=== PATIENT | male | born 1950 | race African-American/Black ===

== ENCOUNTER 2017-06-19 13:51 | Emergency (ER) | payer BC, OTHER ==
[2017-06-19] MEDS ORDERED: Dextrose 50% Abboject 50 ML SYRINGE ONE (14:14)
[2017-06-19 14:56] LABS: #Eosinphils 0.2 thou/uL (0.0-0.7); #Lymphocytes 0.8 thou/uL (1.20-3.40); #Monocytes 0.5 thou/uL (0.11-0.59); #Neutrophils 4.3 thou/uL (1.40-6.50); %Basophils 0.7 % (0.0-1.0); %Eosinophils 3.9 % (0.0-10.0); %Lymphocytes 13.7 % (21.0-51.0); %Monocytes 8.3 % (0.0-10.0); %Neutrophils 73.4 % (42.0-75.0); Hemoglobin 14.6 g/dL (14.0-18.0); Mean Corpuscular HGB CONC 31.1 g/dL (32.0-36.0); Mean Corpuscular Hemoglobin 27.1 pg (27.0-31.0); Mean Platelet Volume 7.4 fL (7.4-10.4); Platelet Count 304 thou/uL (130-400); RBC Distribution Width 14.2 % (11.5-14.5); Red Blood Cell (RBC) Count 5.41 mill/uL (4.70-6.10); White Blood Cell (WBC) Count 5.8 thou/uL (4.8-10.8)
[2017-06-19 15:11] LABS: ALT (SGPT) 21 U/L (8-55); AST (SGOT) 38 U/L (5-34); Albumin 3.4 g/dL (3.4-4.8); Alkaline Phosphatase 70 U/L (40-150); Anion Gap 12 mmol/L (10-20); BUN (Urea Nitrogen) 45 mg/dL (8.4-25.7); Bilirubin, Total 0.3 mg/dL (0.2-1.2); Calc. Creatinine Clearance 0 mL/min (70-130); Calcium 9.6 mg/dL (7.8-10.44); Carbon Dioxide 22 mmol/L (23-31); Chloride 109 mmol/L (98-107); Estimated GFR-MDRD 29; Globulin 3.5 g/dL (2.4-3.5); Glucose 136 mg/dL (80-115); Potassium 5.1 mmol/L (3.5-5.1); Protein, Total 6.9 g/dL (5.8-8.1); Sodium 138 mmol/L (136-145)
[2017-06-19 15:36] LABS: Bilirubin Negative (Negative); Clarity CLEAR (Clear); Glucose, Urine (Dipstick) 250 mg/dL (Negative); Leukocyte Negative (Negative); Nitrite Negative (Negative); Protein, Urine (Dipstick) 300 mg/dL (Neg-Trace); Specific Gravity, Urine 1.012 (1.002-1.036); Urobilinogen 0.2 mg/dL (0.2-1.0); pH, Urine 6.5 (5.0-9.0)
[2017-06-19 15:38] LABS: Bacteria/HPF None Seen HPF (None Seen); Hyaline Casts/LPF 0-3 HYALINE CAST LPF (0-3 Hyaline); Pathc Cast-AUWi Flag 0.13 (0-2.49); Squamous Epithelial None Seen HPF (0-3); WBC/HPF 0-3 HPF (0-3)
[2017-06-19 15:44] LABS: Blood, Urine Large (Negative)
== END 2017-06-19 17:12 | disposition home or self-care (01) ==
LOC: ERS 13:51
DX: E11.649 Type 2 diabetes mellitus with hypoglycemia without coma (principal); E78.5 Hyperlipidemia, unspecified; I10 Essential (primary) hypertension; E66.9 Obesity, unspecified; J45.909 Unspecified asthma, uncomplicated; Z79.82 Long term (current) use of aspirin; Z79.899 Other long term (current) drug therapy; Z79.4 Long term (current) use of insulin
CPT/HCPCS: 36415; 36416; 80053; 81003; 81015; 85025; 96374

== ENCOUNTER 2018-03-08 17:33 | Inpatient (IN) | payer MEDICARE, OTHER ==
--- NOTE | 2018-03-08 18:32 | PDOC.FPRHP ---
Addendum entered and electronically signed by Wilber Yip MD 03/09/18 08:00 : FH: DM Addendum entered and electronically signed by Wilber Yip MD 03/09/18 05:15 : PMH: DM, HTN, HLD, CKD, L eye cataract PSH: L eye (multiple surgeries) Social: Former EtOH abuse, denies smoking denies drugs Original Note: - History of Present Illness Chief Complaint: maggots in legs History of Present Illness: This is a 67M with pmh of DM, chronic bilateral LE wounds, and CKD presenting as transfer from [place] ED for evaluation of maggot infestation of chronic leg wounds. Pt reports wounds appeared on legs 3 months ago and then resolved but recently came back 1 month ago. The morning of 03/08 the pt daughter came by to check on him and noticed that his legs were infected with hundreds of maggots. Pt presented to ED in [place] and was found to also have hyperkalemia and hyperglycemia, was given insulin and rocephine and transferred to [place] ED. Pt denies knowing about the maggots until this morning. Denies fevers/chills or any other signs of infection. Denies pain in legs. Endorses 1 month hx of SOB on exertion and orthopnea. no paroxysmal nocturnal dsypnea. Reports this is a new problem and has no hx of copd or chf as far as he knows. ED Course: Insulin, rocephin, hydralazine. Wound cleaned with hydrogen peroxide and 100- 300 maggots removed. - Allergies/Adverse Reactions Allergies Allergy/AdvReac Type Severity Reaction Status Date / Time No Known Drug Allergies Allergy Unverified 03/08/18 20:25 - Home Medications Medication Instructions Recorded Confirmed Type Aspirin [Aspirin EC] 325 mg PO DAILY 03/08/18 03/08/18 History Atenolol [Tenormin] 50 mg PO BID 03/08/18 03/08/18 History Atropine Sulfate [Atropine 1% 1 applic L EYE BID 03/08/18 03/08/18 History Ophth Ointment] Ferrous Sulfate [Feosol] 325 mg PO BID 03/08/18 03/08/18 History Hydrochlorothiazide 25 mg PO DAILY 03/08/18 03/08/18 History Insulin NPH Hum/Reg Insulin HM 20 unit SQ QPM 03/08/18 03/08/18 History [Novolin 70-30 100 Unit/ml Vial] Insulin NPH Hum/Reg Insulin HM 60 units SQ QAM 03/08/18 03/08/18 History [Novolin 70-30 100 Unit/ml Vial] Loratadine [Claritin] 10 mg PO DAILY PRN 03/08/18 03/08/18 History Losartan Potassium 100 mg PO DAILY 03/08/18 03/08/18 History Prednisolone Acetate/Pf 1 drop OP QID 03/08/18 03/08/18 History [Prednisolone Acet 1% Eye Drop] Simvastatin 40 mg PO HS 03/08/18 03/08/18 History - History PMHx: PSHx: FHx: Social: - Review of Systems General: denies: fever/chills, night sweats Eyes: denies: vision changes ENT: denies: nasal congestion, rhinorrhea Respiratory: reports: shortness of breath. denies: cough Cardiovascular: reports: orthopnea. denies: chest pain, palpitation, paroxysmal nocturnal dyspnea Gastrointestinal: denies: nausea, vomiting, diarrhea, constipation Genitourinary: denies: incontinence, dysuria Skin: denies: rashes, jaundice Musculoskeletal: denies: pain Neurological: denies: numbness, syncope - Vital signs BP: [198/83] HR: [84] RR: [22] Tmax: [98] Pox: [95]% on [RA] Wt: [130kg] - Physical Exam Constitutional: NAD, awake, alert and oriented HEENT: normocephalic and atraumatic, EOMI, normal nasal mucosa, MMM Neck: trachea midline Chest: no-tender to palpation Heart: RRR, normal S1/S2 Lungs: CTAB, other (Pt appears to have mildy labored breathing) Abdomen: soft, non-tender -Skin: LLE-8x12cm open hemostatic wound on anterior tibia with necrotic skin overlying in patches. 50-100 small maggots actively crawling through wound --> s/p cleaning no more maggots, necrotic tissue remains. RLE- 11x7cm open hemostatic wound and anterior tibia with necrotic skin overlying in patches. 50-100 small maggots actively crawling through wound --> s /p cleaning no more maggots, necrotic tissue remains. 7x4.5cm wound on posterior calve, no maggots, necrotic tissue Psychiatric: normal mood and affect FMR H&P: Results - Labs Result Diagrams: 03/09/18 05:17 03/09/18 13:53 FMR H&P: A/P - Problem List (1) Chronic wound of extremity Current Visit: Yes Status: Acute Code(s): [id number] - (2) Hyperkalemia Current Visit: Yes Status: Acute Code(s): E87.5 - HYPERKALEMIA (3) Hyperglycemia Current Visit: Yes Status: Acute Code(s): R73.9 - HYPERGLYCEMIA, UNSPECIFIED (4) Diabetes Current Visit: Yes Status: Acute Code(s): E11.9 - TYPE 2 DIABETES MELLITUS WITHOUT COMPLICATIONS (5) CKD (chronic kidney disease) Current Visit: Yes Status: Acute Code(s): N18.9 - CHRONIC KIDNEY DISEASE, UNSPECIFIED (6) Hypertensive urgency Current Visit: Yes Status: Acute Code(s): I16.0 - HYPERTENSIVE URGENCY (7) HTN (hypertension) Current Visit: Yes Status: Acute Code(s): I10 - ESSENTIAL (PRIMARY) HYPERTENSION - Plan Lower extremity wounds likely secondary to venous/arterial insufficiency A- s/p wound irrigation with H2O2 and normal saline and removal of maggots. wound care consulted in ED. P- Consider vascular surgery consult in AM -f/u wound care recs Hyperkalemia A- s/p insulin and albuterol, no peaked T or arrythmia on EKG. most recent potassium 5.1 P- repeat bmp in AM Dyspnea A- likely 2/2 volume overload vs bronchospasm. satting well on RA P- CXR, BNP, and Echo for further evaluation. -will give lasix and nebs Hypertensive urgency A- s/p Hydralazine 10 mg in ED. P- will restart home meds -lasix -continue to monitor Chronic kidney disease A- Cr. 3.37, last one before that was 2.71 in 2017 P- PO hydration -BMP in am hold nephrotoxic medications. Diabetes Mellitus A- hyperglycemic on presentation, s/p humilin in ED, refusing nighttime home insulin meds P- resume home meds -SSI and accuchecks -case mgmt to [facility] for home health as pt has difficulty taking care of himself FMR H&P: Upper Level - Pertinent history Juan M Suero is a 67 year old male with a past history of diabetes, hypertension, and chronic kidney disease, and vision impairment who was transferred from an outside ER due to worsening bilateral lower extremity wounds now infected with maggots. He was also found to have hyperkalemia with a potassium of 6.4. Pt's lives at home by himself and his daughter routinely checks in on him. She noticed the maggots today and transported him to the ED. Prior to transfer he received albuterol, 1L NS, [place]. - Pertinent findings Vitals: T: 98.0 RR: 30 P: 84 BP: 198/83 95%on RA. Weight: 108 kg Physical Exam: General: alert and oriented; in no apparent distress. Heart: Regular rate and rhythm Lungs: clear to auscultation Extremities: Bilateral lower extremity wounds (R: 12x7 cm and L: 14x8 cm) covered in scores of maggots. no pulses identified by doppler. - Plan Date/Time: 03/08/181831 I, Tessie Sousa, have evaluated this patient and agree with findings/plan as outlined by paid intern resident. Pertinent changes/additions are listed here. Lower extremity wounds likely secondary to venous/arterial insufficiency - with myiasis - s/p wound irrigation with H2O2 and normal saline - will consult wound care. - will also consult vascular surgery in am as well due to impaired circulation. Hyperkalemia - s/p insulin and albuterol - no EKG changes - will repeat BMP now to see if it has resolved. Dyspnea - differentials include volume overload, bronchospasm - not hypoxic on room air. - will order CXR, BNP, and Echo for further evaluation. Hypertensive urgency - s/p Hydralazine 10 mg in ED. - will restart home meds Chronic kidney disease - hold nephrotoxic medications. Protein-calorie malnutrition - Jevity Diabetes Mellitus Will need to consult CM for placement as pt lives alone, and cannot adequately take care of himself. Chronic kidney disease - will avoid nephrotoxic medications. - PO hydration. Attending Addendum - Attending Addendum Date/Time: 03/09/182047. Please note seen on 03/08 on day of admission. I personally evaluated the patient and discussed the management with Dr. Yip and Lars. I agree with and repeated the History, Examination, Assessment and Plan documented above with any addition or exceptions noted below. Wound care. No signs/symptoms of infection. Insulin for DM and hyperK. Recheck K, may need additional therapy. D/w renal in AM. Nebs for acute respiratory failure/shortness of breath and monitor closely.
[2018-03-08] MEDS ORDERED: hydrALAZINE 20 MG/ML VIAL ONE (19:33)
[2018-03-08 20:33] LABS: Anion Gap 14 mmol/L (10-20); BUN (Urea Nitrogen) 45 mg/dL (8.4-25.7); Calc. Creatinine Clearance 0 mL/min (70-130); Calcium 8.5 mg/dL (7.8-10.44); Carbon Dioxide 18 mmol/L (23-31); Chloride 109 mmol/L (98-107); Estimated GFR-MDRD 23; Glucose 237 mg/dL (80-115); Potassium 5.1 mmol/L (3.5-5.1); Sodium 136 mmol/L (136-145)
[2018-03-08] MEDS ORDERED: Insulin NPH/Reg Insulin Hm 300 UNITS/3 ML VIAL SC SCH (21:00)
[2018-03-08] MEDS ORDERED: Atenolol 50 MG TAB PO SCH (21:00)
[2018-03-08] MEDS ORDERED: Insulin Regular 300 UNITS/3 ML VIAL SC PRN (21:05)
[2018-03-08] MEDS ORDERED: Dextrose 5% in Water 1,000 ML IV PRN (21:05)
[2018-03-08] MEDS ORDERED: Dextrose 50% Abboject 50 ML SYRINGE SLOW IVP PRN (21:05)
--- NOTE | 2018-03-08 21:26 | RAD ---
AP VIEW CHEST 03/08/18 HISTORY: Necrotic leg wound both lower extremities. Maggots on wounds. AP view chest is obtained. A moderate degree of pulmonary vascular congestion seen. No evidence of effusions, pneumonia, or pne umothorax seen. IMPRESSION: Pulmonary vascular congestion. POS: [facility]
[2018-03-08] MEDS: Ferrous Sulfate 325 MG TAB PO SCH (22:50)
[2018-03-08] MEDS: prednisoLONE 1% Ophth Susp 5 ml Bottle EA EYE SCH (23:50)
[2018-03-09] MEDS ORDERED: Furosemide 40 MG/4 ML VIAL SLOW IVP SCH ×2 (00:30→06:00)
[2018-03-09] MEDS ORDERED: Insulin NPH/Reg Insulin Hm 300 UNITS/3 ML VIAL SC SCH ×2 (01:58→23:15)
--- NOTE | 2018-03-09 05:35 | PDOC.FM ---
- Subjective Subjective: Patient's repeat K this AM was elevated at 6.8 w/ noticeable peaked T waves on EKG. Patient is completely asymptomatic. Denies any fever, CP, SOB, leg pain, or N/V/D. Does endorse some chills and despite denying dyspnea was short of breath on exam. Able to answer questions but sounded SOB while responding. - Objective MAR Reviewed: Yes Vital Signs & Weight: Vital Signs (12 hours) Temp Pulse Resp BP BP Pulse Ox 03/09/18 04:00 98.3 F 80 32 H 172/77 H 99 03/09/18 00:00 98.1 F 84 32 H 186/82 H 97 03/08/18 21:05 97 03/08/18 21:00 97.9 F 81 24 H 176/79 H 97 Weight Weight 130.181 kg Result Diagrams: 03/09/18 05:17 03/09/18 05:17 Phys Exam - Physical Examination mild distress 2/2 tachypnea HEENT: moist MMs, oral pharynx no lesions cataract over L eye matted shut w/ some purulent discharge noted. 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 Neck: supple, full ROM Respiratory: no wheezing, no rales, no rhonchi, clear to auscultation bilateral increased work of breathing/tachypnic on exam Cardiovascular: RRR, no significant murmur, no rub Gastrointestinal: soft, non-tender, positive bowel sounds mild distension B/L LE edema, non-pitting Neurological: non-focal, moves all 4 limbs sensation intact in B/L LEs Psychiatric: normal affect, A&O x 3 Deviation from normal: B/L anterior leg wounds covered with dressing w/ no discharge noted -: foul odor present Dx/Plan (1) CKD (chronic kidney disease) Code(s): N18.9 - CHRONIC KIDNEY DISEASE, UNSPECIFIED Status: Acute (2) Chronic wound of extremity Code(s): [id number] - Status: Acute (3) Diabetes Code(s): E11.9 - TYPE 2 DIABETES MELLITUS WITHOUT COMPLICATIONS Status: Acute (4) HTN (hypertension) Code(s): I10 - ESSENTIAL (PRIMARY) HYPERTENSION Status: Acute (5) Hyperkalemia Code(s): E87.5 - HYPERKALEMIA Status: Acute (6) Hypertensive urgency Code(s): I16.0 - HYPERTENSIVE URGENCY Status: Acute (7) Hyperglycemia Code(s): R73.9 - HYPERGLYCEMIA, UNSPECIFIED Status: Acute - Plan Plan: This is a 67YOM with a pmh of DMII, chronic bilateral LE wounds, and CKD who presented as transfer from the [place] ED for evaluation of maggot infestation of chronic leg wounds. Chronic lower extremity wounds likely secondary to venous/arterial insufficiency - Wounds were irrigated with H2O2 and normal saline with removal of maggots in the ED. - Wound care consulted in ED. - Will consider vascular surgery consult in AM as pulses were not even identified via doppler in the ED & PVD could be reason for poor wound healing in conjnction w/ poorly controlled DMII. Hyperkalemia - K was 6.4 on presentation & decreased to 5.1 s/p insulin and albuterol. No peaked T or arrhythmia on EKG. - K up to 6.8 this AM w/ peaked T waves noted on telemetry & EKG. Was given Ca, insulin w/ dextrose, and continuous albuterol. Also ordered kayexalate & lactulose per nephro. Dr. Arreola consulted. Appreciate recs. - Will repeat K later today and will continue to follow w/ QD BMPs. Dyspnea - Likely 2/2 volume overload from CKD &/or undiagnosed CHF vs. bronchospasm. - Patient was initially satting well on RA but is now on 2L NC likely 2/2 tachypnea but satting between 97-100%. - CXR significant for pulmonary vascular congestion & BNP elevated at 888.5. Will get an echo today to evaluate for undiagnosed CHF. - Will get QD weights & strict Is & Os. - Will continue Duonebs PRN. - Will consider holding lasix given poor renal function as patient is likely volume overloaded due to poor renal function. - Nephrology consulted this AM. Dr. Arreola to see. Appreciate recs. Hypertensive urgency - BP s/p Hydralazine 10 mg in ED. BP still not well-controlled overnight. - Will start on 10 Norvasc and coreg 12.5 BID since previous home meds would likely not be effective given his poor/decreased renal function. - Will continue to monitor. Chronic kidney disease - Cr of 3.37 on presentation which is elevated from last measured Cr of 2.71 in 2017. - Will hold on on IVFs due to concern for volume overload and will continue PO hydration for now. - Cr down to 3.13 this AM. - Will hold all nephrotoxic medications. Diabetes Mellitus - Elevated BG of 237 on presentation. Still elevated at 289 this AM as patient refused his PM insulin dose 2/2 fear of "bottoming out." - Will resume home meds w/ addition of SSI. Will continue accuchecks. - A1c elevated at 11 this AM. Needs DM education. - Case mgmt consulted to evaluate for home health as patient obviously has difficulty taking care of himself.
[2018-03-09 05:42] LABS: #Eosinphils 0.1 thou/uL (0.0-0.7); #Lymphocytes 0.9 thou/uL (1.20-3.40); #Monocytes 0.7 thou/uL (0.11-0.59); #Neutrophils 5.8 thou/uL (1.40-6.50); %Basophils 0.5 % (0.0-1.0); %Eosinophils 1.4 % (0.0-10.0); %Lymphocytes 12.2 % (21.0-51.0); %Neutrophils 76.9 % (42.0-75.0); Hemoglobin 10.7 g/dL (14.0-18.0); Mean Corpuscular HGB CONC 31.5 g/dL (32.0-36.0); Mean Corpuscular Hemoglobin 25.7 pg (27.0-31.0); Mean Corpuscular Volume 81.6 fL (78.0-98.0); Mean Platelet Volume 7.7 fL (7.4-10.4); Platelet Count 365 thou/uL (130-400); RBC Distribution Width 14.5 % (11.5-14.5); Red Blood Cell (RBC) Count 4.18 mill/uL (4.70-6.10); White Blood Cell (WBC) Count 7.6 thou/uL (4.8-10.8)
[2018-03-09] MEDS ORDERED: Sodium Chloride 0.9% 10 ML ONE (05:52)
[2018-03-09 06:05] LABS: Anion Gap 15 mmol/L (10-20); BUN (Urea Nitrogen) 44 mg/dL (8.4-25.7); Calc. Creatinine Clearance 43 mL/min (70-130); Calcium 8.6 mg/dL (7.8-10.44); Carbon Dioxide 17 mmol/L (23-31); Chloride 112 mmol/L (98-107); Estimated GFR-MDRD 24; Glucose 289 mg/dL (80-115); Sodium 137 mmol/L (136-145)
[2018-03-09 06:11] LABS: Potassium 6.8 mmol/L (3.5-5.1)
[2018-03-09] MEDS ORDERED: Calcium Gluc 4.6 MEQ/10 ML (100 MG/ML) SLOW IVP SCH (06:16)
[2018-03-09] MEDS ORDERED: Dextrose 50% Abboject 50 ML SYRINGE SLOW IVP PRN (06:18)
[2018-03-09] MEDS: prednisoLONE 1% Ophth Susp 5 ml Bottle EA EYE SCH ×3 (06:19→16:42)
[2018-03-09] MEDS ORDERED: Insulin Regular 300 UNITS/3 ML VIAL IVP SCH (06:30)
[2018-03-09] MEDS ORDERED: Sodium Bicarb 50 MEQ/50 ML Abboject 8.4% SYRINGE IVP SCH (06:30)
[2018-03-09] MEDS ORDERED: Albuterol Sulfate 1.25 MG/3 ML NEB NEB STA (06:42)
[2018-03-09] MEDS: Amlodipine 10 MG TAB PO SCH (08:49)
[2018-03-09] MEDS: Aspirin 325 mg Enteric Coated Tablet PO SCH (08:49)
[2018-03-09] MEDS: Ferrous Sulfate 325 MG TAB PO SCH ×2 (08:50→21:50)
[2018-03-09] MEDS: Carvedilol 6.25 MG TAB PO SCH ×2 (08:50→16:07)
[2018-03-09] MEDS: Atorvastatin Calcium 20 MG TAB PO SCH (08:50)
[2018-03-09] MEDS: Loratadine 10 MG TAB PO SCH (08:50)
[2018-03-09] MEDS: Atropine Sulfate 1% Ophth Ointment 3.5 gm Tube L EYE SCH (08:52)
[2018-03-09] MEDS ORDERED: Enoxaparin Sodium 40 MG/0.4 ML SYRINGE SC SCH (09:00)
[2018-03-09] MEDS ORDERED: Losartan 25 MG TAB PO SCH (09:00)
[2018-03-09] MEDS ORDERED: Prevnar 13-Val Conj/PF 0.5 ML SYRINGE IM ONE (09:00)
[2018-03-09] MEDS ORDERED: Hydrochlorothiazide 25 MG TAB PO SCH (09:00)
[2018-03-09] MEDS: Insulin NPH/Reg Insulin Hm 300 UNITS/3 ML VIAL SC SCH (09:04)
[2018-03-09] MEDS ORDERED: Albumin 25% 25 GM/100 ML BOT IVPB ONE (09:38)
[2018-03-09] MEDS ORDERED: Magnesium 2 GM/50 ML 2 GM in Premix Bag 1 BAG IVPB SCH (11:00)
[2018-03-09] MEDS ORDERED: Nitroglycerin 2% Ointment 1 INCH/1 GM Packet TOP SCH ×2 (11:00)
--- NOTE | 2018-03-09 11:33 | CON ---
DATE OF CONSULTATION: 03/09/2018 HISTORY OF PRESENT ILLNESS: Mr. Suero is a 67-year-old black male who was admitted for an infected left leg. As per ER record, the patient presented with chronic leg infection. was found to b e there. This was subsequently clean. Wound care consult has been done. He was admitted for furthe r management of his infection as well as for the hyperkalemia. Of interest, this patient has been taking losartan 100 mg tab once a day. He is followed up at the [facility] for his medical care. We are now being consulted for his chronic renal failure as well as hyperkal emia. REVIEW OF SYSTEMS: Positive for chronic leg infection. Denies any fever, no nausea, no vomiting. D ecreased left eye visual alacrity. No fever or chills. No hematochezia, no melena, no hematemesis, no abdominal pain. Appetite and energy level is fair. No occasional joint pains, no new skin rash. HOME MEDICATIONS: Losartan 100 mg once a day, prednisone drop as directed, simvastatin 40 mg tab at bedtime, Novolin 70/30, 20 units subcu q.p.m. and 60 units subcu q.a.m., hydrochlorothiazide 25 mg da joy, atenolol 50 mg p.o. b.i.d., aspirin 325 mg once a day. PAST MEDICAL HISTORY: 1. Type 2 diabetes mellitus. 2. Chronic renal failure secondary to presumed diabetic nephropathy. 3. Hypertension. 4. Type 2 diabetes mellitus. 5. Peripheral vascular disease? 6. Left eye blindness? 7. Glaucoma. PAST SURGICAL HISTORY: Includes left eye surgery, status post colonoscopy. SOCIAL HISTORY: The patient is , lives in [place], he is a . 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 Education, high school. No smoking, no alcoh ol intake, no IV drug abuse. ALLERGIES: No known drug allergies. TRAUMA: None. IMMUNIZATIONS: Unknown. HOSPITALIZATIONS: Please see past medical history. FAMILY HISTORY: No family history of ESRD. PHYSICAL EXAMINATION: VITAL SIGNS: Blood pressure 143/68, heart rate 88, respiratory rate 24, pulse ox 100%, temperature 9 8.3. GENERAL: Noted to be awake, alert, comfortable, not in overt distress. SKIN: Adequate turgor. HEENT: Pinkish conjunctivae, anicteric sclerae. NECK: No neck mass, no carotid bruits, no JVD. Positive for left eye blindness. LUNGS: Clear breath sounds, no wheezing, no crackles. HEART: Normal sinus rhythm. No murmur, no gallops or rubs. ABDOMEN: Globular, soft, nontender, no masses. EXTREMITIES: Positive for chronic wound infection. Positive for dressing. NEUROLOGIC: Awake, oriented to 3 spheres. Moving all extremities. No tremors, no asterixis, no aroldo margot. LABORATORY DATA: Of 03/09/2018: Sodium 137, potassium 6.8, chloride 112, carbon dioxide 17, BUN 44, creatinine 3.13, glucose 289, calcium 8.6. BNP 888. White count 7.6, hemoglobin 10.7. Urinalysis shows a protein of 300, rbc's , wbc's 0-3. Chest x-ray shows increased lung markings. ASSESSMENT AND PLAN: 1. Chronic renal failure -- with the proteinuria, longstanding history of diabetes mellitus consider diabetic nephropathy. The management of supportive care clear at the moment, no indication for any dialytic intervention. We will review a renal ultrasound with this patient. I would at least start this patient salt poor albumin 25 grams IV q.6 for at least 3 days. This is in order to optimize his hemodynamics and see if I could improve his renal function. 2. Hyperkalemia -- the patient has been given Kayexalate 30 grams, calcium gluconate and D50 with in sulin. I feel that this hyperkalemia will improve. We will recheck potassium 6 hours after the said medical management. Thank you for the consult. We will continue to follow.
--- NOTE | 2018-03-09 11:58 | PRG ---
DATE OF SERVICE: 03/09/2018 Mr. Suero is a 67-year-old black man who was admitted with infected peripheral leg and foot wounds. He was noted at home to have maggots within his wounds. He was transported to our institution for higher level of care. We have consulted Wound Care and we will likely need to consult CV Surgery as the patient has significant peripheral vascular disease. We will go ahead and start some IV vancomyc in pending input from the wound care team. On admission, his white count was only 7600, hemoglobin was 10.7. His hematocrit was 34.1. He has r emained afebrile, was normal and stable vital signs. Chemistries: He has chronic kidney disease sig nificant. He was admitted with hyperkalemia treated appropriately, but it eddi again this morning to a level of 6.8. We will again treat him with calcium, insulin, and Kayexalate. Dr. Arreola has also be en involved in his care. His BUN is 44, creatinine is 3.13. His hemoglobin A1c is 11. Glucose this morning was 289 and his B [employer] was 889. The plan for now; continue with wound care, add antibiotics. Consult CV Surgery and proceed based on their recommendations along with those from Dr. Arreola.
[2018-03-09] MEDS ORDERED: Vancomycin HCl 2 GM, Admixture Fee 1 EACH in Sodium Chloride 0.9% 500 ML IVPB SCH (12:00)
[2018-03-09] MEDS: Albumin 25% 25 GM/100 ML BOT IVPB SCH ×3 (12:42→21:50)
[2018-03-09 14:20] LABS: Anion Gap 14 mmol/L (10-20); BUN (Urea Nitrogen) 43 mg/dL (8.4-25.7); Calc. Creatinine Clearance 41 mL/min (70-130); Calcium 9.2 mg/dL (7.8-10.44); Carbon Dioxide 22 mmol/L (23-31); Chloride 111 mmol/L (98-107); Estimated GFR-MDRD 23; Glucose 189 mg/dL (80-115); Potassium 5.1 mmol/L (3.5-5.1); Sodium 142 mmol/L (136-145)
--- NOTE | 2018-03-09 14:39 | ULT ---
RENAL ULTRASOUND 03/09/18 HISTORY: Renal failure. COMPARISON: None. TECHNIQUE: Sagittal and transverse imaging is performed. FINDINGS: There is bilateral renal cortical thinning. Right kidney measures 9.9 x 5.3 x 6.0 cm. Left kidney evita sures 6.0 x 7.2 x 10.7 cm. Bilaterally, no hydronephrosis. Hayes catheter is decompressing the urinary bladder. IMPRESSION: No hydronephrosis. POS: [facility]
[2018-03-09] MEDS: Furosemide 40 MG/4 ML VIAL SLOW IVP SCH (15:20)
[2018-03-10] MEDS: prednisoLONE 1% Ophth Susp 5 ml Bottle EA EYE SCH ×4 (00:02→17:17)
--- NOTE | 2018-03-10 00:10 | CON ---
DATE OF CONSULTATION: 03/09/2018 REQUESTING PHYSICIAN: Sunil Leach M.D. HISTORY OF PRESENT ILLNESS: A 67-year-old -[place] man with history of severe peripheral vas cular disease and diabetes mellitus, and was brought to the emergency department with infected bilate ral lower extremity and feet wounds. The patient had maggots in both leg wounds. He reports no feve rs or chills. I was asked to evaluate the patient for possible surgical debridement of the said woun ds. At the time of my evaluation, the patient is awake and alert. He reports some pain to the lower extremity wounds when dressings were being changed. PAST MEDICAL HISTORY: Pertinent for type 2 diabetes mellitus, chronic renal failure, glaucoma with l eft eye blindness, severe peripheral vascular disease, non-insulin dependent diabetes mellitus and es sential hypertension. PAST SURGICAL HISTORY: Includes some surgery to his left eye. He has had a colonoscopy in the past. He denies any surgery to the chest or abdomen. SOCIAL HISTORY: The patient is a poorly kept , who lives independently. He denies any cigare tte smoking, ethanol or illicit drug abuse. PREHOSPITAL MEDICATIONS: Includes aspirin 325 mg p.o. daily; atenolol 50 mg p.o. daily; atropine sul fate ophthalmic to left eye twice daily; ferrous sulfate 325 mg p.o. b.i.d.; hydrochlorothiazide 25 m g p.o. daily; insulin 70/30, 20 units q.p.m. and 60 units q.a.m.; losartan 100 mg p.o. daily; simvast atin 40 mg p.o. daily; prednisolone acetate ophthalmic drops to left eye q.i.d. ALLERGIES: The patient denies any known drug allergies. REVIEW OF SYSTEMS: As stated in past medical history and chief complaint. PHYSICAL EXAMINATION: GENERAL: This reveals a 67-year-old obese -[place] man, who is poorly kept. The patient is in no acute distress at the time of my evaluation. VITAL SIGNS: Currently includes blood pressure 129/61, pulse 82, respiratory rate is 22, temperature 98.9 degrees Fahrenheit, oxygen saturation 93% on room air. HEENT: The patient is partially edentulous with poor oral hygiene. He is functionally blind. HEART: Reveals regular rate and rhythm. No murmurs or gallops auscultated. LUNGS: Clear to auscultation bilaterally. Breathing regular and unlabored. ABDOMEN: Soft and obese with no tenderness to palpation. EXTREMITIES: Reveals thready palpable bilateral radial pulses. Both feet are cold to touch. He has dry eschars involving both feet and the pretibial areas bilaterally. Bilateral pretibial wounds hav e a thickened dry eschar, some exposed underlying granulation tissue is observed with no significant gross purulence. There are live maggots in the wound itself. NEUROLOGIC: Reveals no focal deficits present. LABORATORY FINDINGS: Today includes a CBC with 7600 white blood cells, hemoglobin and hematocrit 10. 7 and 34.1 respectively. Platelet count is 365,000. Metabolic profile: Sodium 142, potassium is 5. 1, chloride is 111, bicarbonate is 22, BUN is 43, creatinine is 3.25, glucose is 189. IMPRESSION: 1. Severe peripheral vascular disease of the bilateral lower extremities. 2. Infected bilateral pretibial leg wounds. 3. Probable ischemic bilateral feet secondary to severe peripheral vascular disease. 4. Acute on chronic renal failure. RECOMMENDATIONS: 1. Local wound care including the use of Medihoney for the management of the bilateral pretibial wou nds. 2. There is no acute surgical indication for this patient at this time. 3. General Surgery will follow along with you and make further recommendations as necessary.
--- NOTE | 2018-03-10 00:25 | CON ---
DATE OF CONSULTATION: 03/09/2018 DATE OF ADMISSION: 03/08/2018 REASON FOR CONSULTATION: Evaluate patient with peripheral vascular disease. HISTORY OF PRESENT ILLNESS: Mr. Suero is a 67-year-old longstanding diabetic who was at home in [facility] usual state of health and noticed that he had bugs or some other entity crawling on his lower extre mities. He went to the emergency room in [place] and was found to have maggot infested wounds o n his lower legs that he had no idea were open source. He was transferred here. They removed the ma ggots in the emergency department and I have been asked to see him for further evaluation. Dr. Sousa from General Surgery has seen him and begun wound care on his lower extremity wounds. Thes e were venous stasis location type wounds. Of significance, the patient has a history of longstanding diabetes mellitus. He has been on insulin in the past. PAST SURGICAL HISTORY: He is very unclear what he does for his diabetes currently, but his hemoglobi n A1c is 11. It is hard to get much intelligent history from the patient, so most of my history has been gleaned from the chart. He also carries a history of hypertension, renal insufficiency, and gla ucoma. He is blind in his left eye. PAST SURGICAL HISTORY: Colonoscopy, left eye surgery. 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 ALLERGIES: He has no allergies. HOME MEDICATIONS: Noted in the chart, but is still again very unclear what he was taking when you ta lk to him about the medications. PHYSICAL EXAMINATION: GENERAL: This is an obese elderly man, resting in bed without complaint. HEENT: Left eye is glazed, and he cannot see from it. NECK: Supple. He has no carotid bruits. CHEST: Clear bilaterally. HEART: Rhythm is regular, without murmur. ABDOMEN: Obese, soft and nontender. EXTREMITIES: He has dressings on both lower extremities at the mid calf level. Around these dressin gs is typical venous stasis changes. VASCULAR: I cannot palpate femoral, dorsalis pedis or posterior tibial pulses, but due to the patien t's obesity and his skin turgor, I am not surprised. LABORATORY DATA: Of note, his creatinine is 3.25; on admission, potassium is 6.8, hemoglobin is 10.7 , platelet count 365,000. His current potassium 5.1. ASSESSMENT AND PLAN: Mr. Suero is an unfortunate 67-year-old gentleman with open ulcerations to yumiko th legs. These have the typical appearance of a location for venous stasis ulcerations. I am sure russel alvares has some degree of peripheral vascular disease. We will have to see where his creatinine settles a nd whether or not we can do a CT angiogram or have to pursue other avenues for vascular diagnostics.
[2018-03-10] MEDS: Albumin 25% 25 GM/100 ML BOT IVPB SCH ×4 (04:34→20:20)
[2018-03-10] MEDS: Furosemide 40 MG/4 ML VIAL SLOW IVP SCH ×2 (05:27→15:05)
--- NOTE | 2018-03-10 05:45 | PDOC.FM ---
- Subjective Subjective: Patient had an episode of hypoglycemia overnight w/ BS measuring at 67 around 17 :45PM. Patient was given 8oz of OJ w/ 2 sugar packets & BG went up to 77 15 mintues later. Did not receive his PM basal insulin dose at 21:00 last night. Last BG 154. Patient denies any CP, SOB, leg pain, fever/chills, or N/V/D. - Objective MAR Reviewed: Yes Vital Signs & Weight: Vital Signs (12 hours) Temp Pulse Resp BP Pulse Ox 03/10/18 04:00 98 F 80 32 H 122/60 94 L 03/09/18 20:00 97.9 F 68 18 129/59 L 92 L Weight Admit Weight 130.181 kg Weight 130.181 kg I&O: 03/08/18 03/09/18 03/10/18 06:59 06:59 06:59 Intake Total 558 550 Output Total 2975 2200 Balance -8871 -8710 Result Diagrams: 03/09/18 05:17 03/10/18 05:22 Radiology Reviewed by me: Yes Phys Exam - Physical Examination Constitutional: NAD HEENT: moist MMs, sclera anicteric, oral pharynx no lesions Neck: supple, full ROM Respiratory: no wheezing, no rales, no rhonchi, clear to auscultation bilateral Cardiovascular: RRR, no significant murmur, no rub Gastrointestinal: soft, non-tender, no distention, positive bowel sounds Unable to palpate pulses in B/L LEs 2/2 severe venous stasis & obesity Neurological: non-focal, moves all 4 limbs Psychiatric: normal affect, A&O x 3 Deviation from normal: B/L anterior leg wounds covered with dressing; no discharge noted -: foul odor noted Dx/Plan (1) CKD (chronic kidney disease) Code(s): N18.9 - CHRONIC KIDNEY DISEASE, UNSPECIFIED Status: Chronic Qualifiers: Chronic kidney disease stage: stage 4 (severe) Qualified Code(s): N18.4 - Chronic kidney disease, stage 4 (severe) (2) Chronic wound of extremity Code(s): [id number] - Status: Chronic (3) Diabetes Code(s): E11.9 - TYPE 2 DIABETES MELLITUS WITHOUT COMPLICATIONS Status: Chronic Qualifiers: Diabetes mellitus type: type 2 Diabetes mellitus complication status: with kidney complications Diabetes mellitus complication detail: with chronic kidney disease Chronic kidney disease stage: stage 4 (severe) (4) HTN (hypertension) Code(s): I10 - ESSENTIAL (PRIMARY) HYPERTENSION Status: Chronic (5) Hyperkalemia Code(s): E87.5 - HYPERKALEMIA Status: Acute (6) Hypertensive urgency Code(s): I16.0 - HYPERTENSIVE URGENCY Status: Resolved (7) Hyperglycemia Code(s): R73.9 - HYPERGLYCEMIA, UNSPECIFIED Status: Resolved - Plan Plan: This is a 67YOM with a pmh of DMII, chronic bilateral LE wounds, and CKD who presented as transfer from the [place] ED for evaluation of maggot infestation of chronic leg wounds. Chronic lower extremity wounds likely secondary to venous/arterial insufficiency - Wound care consulted. - Will continue IV vancomycin. - Vascular and general surgery consulted yesterday. Appreciate recs. - Vascular recommended CTA of LEs once/if kidney function improves & other imaging if this is not possible to evaluate for suspected PVD. - Gen surg stated no immediate need for surgical intervention at this time & recommended routine wound care w/ medihoney. Hyperkalemia - K was 5.1 at 14:00 yesterday. Was ? this AM. - Dr. Arreola consulted. Appreciate recs. - Will continue to follow w QD BMPs. Dyspnea - Likely 2/2 volume overload from CKD as echo was WNL. - Patient was satting just above 90% on RA overnight and most of yesterday. - Will continue with QD weights & strict Is & Os. - Will continue Duonebs PRN. - Will continue diuresis w IV lasix as tolerated by patient. Hypertensive urgency - Resolved. - BP much better controlled overnight w/ SBP in the 120s. - Will continue 10 Norvasc and coreg 12.5 BID as well as IV albumin & lasix. - Will continue to monitor. Chronic kidney disease stage IV - Cr of ? this AM. - Will continue IV albumin Q6H per nephro's recommendation as well as current BP meds for adequate BP control. - Will continue lasix BID for diuresis as tolerated by patient. Diabetes Mellitus - Patient's BG ranged from above 300 to as low as 67 in the last 24 hours. Received his home dose of 60 units of lantus yesterday AM & required 8 units of sliding scale just after noon. Did not receive his nighttime 20 units. - Will resume continue meds w/ SSI PRN. Will continue accuchecks. - A1c elevated at 11 this AM. Needs DM education. - Case mgmt consulted to evaluate for home health as patient obviously has difficulty taking care of himself. HTN - Will continue 10 Norvasc and coreg 12.5 BID as well as IV albumin & lasix. - Will continue to monitor.
[2018-03-10 05:51] LABS: Anion Gap 11 mmol/L (10-20); BUN (Urea Nitrogen) 44 mg/dL (8.4-25.7); Calc. Creatinine Clearance 39 mL/min (70-130); Calcium 8.7 mg/dL (7.8-10.44); Carbon Dioxide 22 mmol/L (23-31); Chloride 112 mmol/L (98-107); Estimated GFR-MDRD 22; Glucose 123 mg/dL (80-115); Potassium 4.7 mmol/L (3.5-5.1); Sodium 140 mmol/L (136-145)
[2018-03-10] MEDS: Carvedilol 6.25 MG TAB PO SCH ×2 (09:14→16:36)
[2018-03-10] MEDS: Aspirin 325 mg Enteric Coated Tablet PO SCH (09:15)
[2018-03-10] MEDS: Atropine Sulfate 1% Ophth Ointment 3.5 gm Tube L EYE SCH (09:15)
[2018-03-10] MEDS: Loratadine 10 MG TAB PO SCH (09:15)
[2018-03-10] MEDS: Ferrous Sulfate 325 MG TAB PO SCH ×2 (09:15→20:20)
[2018-03-10] MEDS: Heparin 5,000 UNITS/ML VIAL SC SCH ×3 (09:15→20:20)
[2018-03-10] MEDS: Amlodipine 10 MG TAB PO SCH (09:15)
[2018-03-10] MEDS: Atorvastatin Calcium 20 MG TAB PO SCH (09:16)
[2018-03-10] MEDS: Insulin NPH/Reg Insulin Hm 300 UNITS/3 ML VIAL SC SCH ×2 (09:17→21:29)
--- NOTE | 2018-03-10 09:21 | PRG ---
DATE OF SERVICE: 03/10/2018 SUBJECTIVE: Mr. Suero is a 67-year-old black male with known history of chronic renal failure, angeline betes mellitus, and seen by the Renal Service for his chronic renal dysfunction. At that time, I dec ided to continue the diuretics. In addition, he was started on salt poor albumin. Creatinine is sli ghtly higher today. This may be a reflection of the current diuretic regimen. Please note this morn ing diuretic has been adjusted upwards. We have also discontinued this patient's losartan at the pre sent time. I do not feel he is a candidate for any CAREY inhibitors or ARB due to his quite advanced r enal dysfunction. No other complaints today. He has severe leg wounds which has been evaluated by General Surgery as w ell by Cardiovascular Surgery. No acute events noted. OBJECTIVE: VITAL SIGNS: Blood pressure is 135/65, heart rate 83, respiratory rate 17, temperature 97.6, pulse o ximetry 93% room air. GENERAL: Awake, alert, comfortable, not in overt distress. SKIN: Adequate turgor. HEENT: He has pinkish conjunctivae, anicteric sclerae. NECK: No neck mass, no carotid bruits, no JVD. CHEST: No deformities. LUNGS: Clear breath sounds, no wheezing, no crackles. HEART: Normal sinus rhythm. No murmur, no gallops or rubs. ABDOMEN: Globular, soft, nontender. No masses. EXTREMITIES: Positive for edema, positive for wound dressing. MEDICATIONS: 03/10/2018 - Reviewed. LABORATORY DATA: 03/09/2018 - White count 7.6, hemoglobin 10.7. Sodium 140, potassium 4.7, chloride 112, carbon dioxide 22, BUN 44, creatinine 3.45, GFR 22 mL per minute, glucose 123, calcium 8.7. Cardiac echo shows a normal ejection fraction. Renal ultrasound of 03/09/2018 showed no hydronephrosis, but there is bilateral renal cortical thinni ng suggesting chronic renal failure. ASSESSMENT AND PLAN: 1. Chronic renal failure secondary to presumed diabetic nephropathy. Continue supportive care. Con tinue judicious use of diuretics. If the renal function should further worsen in the next few days m y bias is to decrease the Lasix dose. For the moment, agree with the salt poor albumin 25 grams IV q .6 hours. There is no indication for any dialytic intervention with this patient at the present time . 2. Chronic leg edema on IV diuretics. Continue combination of salt poor albumin and diuretics. 3. Chronic leg ulcerations. Consideration for chronic venous stasis. Surgery is following. 4. Diabetic nephropathy. We will check for urinalysis and send quantitate protein and creatinine ra moisés. Overall I agree with current management.
--- NOTE | 2018-03-10 11:54 | PRG ---
DATE OF SERVICE: 03/10/2018 Mr. Suero is resting quietly in bed. In fact, he falls asleep quite often during our interview wit h asa. His daughter states he is a loud snorer. He likely has sleep apnea and we will recommend an outpatient sleep study upon discharge. He has been seen by the Surgery Service and they have recomme nded we continue wound care. We also had him seen by CV Surgery given that he has significant periph eral vascular disease. We may attempt a CTA later depending on how his renal functions level out. Asia alvares is also being seen by Dr. Arreola.
[2018-03-10] MEDS ORDERED: Acetaminophen 1,000 MG in Premix Bag 1 BAG IVPB SCH (12:00)
[2018-03-10 12:56] LABS: Bilirubin Negative (Negative); Blood, Urine Large (Negative); Clarity CLOUDY (Clear); Glucose, Urine (Dipstick) 250 mg/dL (Negative); Leukocyte Trace (Negative); Nitrite Negative (Negative); Protein, Urine (Dipstick) 300 mg/dL (Neg-Trace); Specific Gravity, Urine 1.014 (1.002-1.036); Urobilinogen 0.2 mg/dL (0.2-1.0)
[2018-03-10 12:59] LABS: Bacteria/HPF None Seen HPF (None Seen); Pathc Cast-AUWi Flag 2.47 (0-2.49); Squamous Epithelial 0-3 HPF (0-3)
[2018-03-10 13:04] LABS: Yeast-AUWi Flag 148.2 (0-25.0)
[2018-03-10 13:10] LABS: Crystals/HPF 1+ AMORPH URATES HPF (Negative); Hyaline Casts/LPF 0-3 HYALINE CAST LPF (0-3 Hyaline); RBC/HPF 21-50 HPF (0-3); Yeast-All Forms None Seen HPF (None Seen)
[2018-03-10 13:17] LABS: Creatinine, Urine 83.76 mg/dL (63-166)
[2018-03-10] MEDS: Vancomycin HCl 750 MG in Sodium Chloride 0.9% 250 ML 250 ML IVPB SCH (15:04)
[2018-03-10] MEDS: Ketorolac Tromethamine 0.5% Ophth Soln 3 ml Bottle EA EYE SCH ×2 (16:36→20:19)
[2018-03-10] MEDS ORDERED: Insulin NPH/Reg Insulin Hm 300 UNITS/3 ML VIAL SC SCH (21:00)
[2018-03-11] MEDS: prednisoLONE 1% Ophth Susp 5 ml Bottle EA EYE SCH ×4 (00:21→18:10)
[2018-03-11] MEDS: Albumin 25% 25 GM/100 ML BOT IVPB SCH ×4 (03:34→20:36)
[2018-03-11] MEDS: Furosemide 40 MG/4 ML VIAL SLOW IVP SCH (05:48)
[2018-03-11 06:09] LABS: #Eosinphils 0.3 thou/uL (0.0-0.7); #Lymphocytes 0.6 thou/uL (1.20-3.40); #Monocytes 0.4 thou/uL (0.11-0.59); #Neutrophils 2.9 thou/uL (1.40-6.50); %Basophils 0.2 % (0.0-1.0); %Eosinophils 6.9 % (0.0-10.0); %Lymphocytes 13.8 % (21.0-51.0); %Monocytes 9.3 % (0.0-10.0); %Neutrophils 69.9 % (42.0-75.0); Hemoglobin 8.7 g/dL (14.0-18.0); Mean Corpuscular HGB CONC 31.5 g/dL (32.0-36.0); Mean Corpuscular Hemoglobin 25.4 pg (27.0-31.0); Mean Corpuscular Volume 80.7 fL (78.0-98.0); Mean Platelet Volume 7.7 fL (7.4-10.4); Platelet Count 303 thou/uL (130-400); RBC Distribution Width 14.2 % (11.5-14.5); Red Blood Cell (RBC) Count 3.44 mill/uL (4.70-6.10); White Blood Cell (WBC) Count 4.2 thou/uL (4.8-10.8)
[2018-03-11 06:23] LABS: Anion Gap 14 mmol/L (10-20); BUN (Urea Nitrogen) 45 mg/dL (8.4-25.7); Calc. Creatinine Clearance 36 mL/min (70-130); Calcium 9.2 mg/dL (7.8-10.44); Carbon Dioxide 22 mmol/L (23-31); Chloride 111 mmol/L (98-107); Estimated GFR-MDRD 21; Glucose 93 mg/dL (80-115); Potassium 4.4 mmol/L (3.5-5.1); Sodium 143 mmol/L (136-145)
--- NOTE | 2018-03-11 06:26 | PDOC.FM ---
- Subjective Subjective: NAEO. Patient refused his PM insulin dose once again. Counseled him on importance of taking this dose & about the fact that it doesn't matter if it is before or after dinner, his BG should not drop significantly overnight. States he will "try it our way" tonight. No complaints today. Denies any CP, SOB, N/V. - Objective MAR Reviewed: Yes Vital Signs & Weight: Vital Signs (12 hours) Temp Pulse Resp BP Pulse Ox 03/11/18 05:41 93 L 03/11/18 04:00 98 F 83 28 H 149/67 H 93 L 03/10/18 20:15 98.2 F 73 20 130/62 93 L Weight Admit Weight 130.181 kg Weight 124.42 kg I&O: 03/09/18 03/10/18 03/11/18 06:59 06:59 06:59 Intake Total 523 901 7129 Output Total 2970 2202 6524 Balance -4587 -1650 -384 Result Diagrams: 03/11/18 05:36 03/11/18 05:36 Phys Exam - Physical Examination Constitutional: NAD HEENT: sclera anicteric Terrible dentition w/ tooth roots exposed in few remaining lower teeth Neck: supple, full ROM Respiratory: no wheezing, no rales, no rhonchi, clear to auscultation bilateral Cardiovascular: RRR, no significant murmur, no rub mildly distended no pitting edema present Neurological: non-focal, moves all 4 limbs Psychiatric: normal affect, A&O x 3 Skin: normal turgor, cap refill <2 seconds Deviation from normal: B/L anterior leg wounds significantly improved since admission. -: No active bleeding or discharge noted. Dx/Plan (1) CKD (chronic kidney disease) Code(s): N18.9 - CHRONIC KIDNEY DISEASE, UNSPECIFIED Status: Chronic Qualifiers: Chronic kidney disease stage: stage 4 (severe) Qualified Code(s): N18.4 - Chronic kidney disease, stage 4 (severe) (2) Chronic wound of extremity Code(s): [id number] - Status: Chronic (3) Diabetes Code(s): E11.9 - TYPE 2 DIABETES MELLITUS WITHOUT COMPLICATIONS Status: Chronic Qualifiers: Diabetes mellitus type: type 2 Diabetes mellitus complication status: with kidney complications Diabetes mellitus complication detail: with chronic kidney disease Chronic kidney disease stage: stage 4 (severe) (4) HTN (hypertension) Code(s): I10 - ESSENTIAL (PRIMARY) HYPERTENSION Status: Chronic (5) Hyperkalemia Code(s): E87.5 - HYPERKALEMIA Status: Acute (6) Hypertensive urgency Code(s): I16.0 - HYPERTENSIVE URGENCY Status: Resolved (7) Hyperglycemia Code(s): R73.9 - HYPERGLYCEMIA, UNSPECIFIED Status: Resolved (8) Self-care deficit for bathing and hygiene Code(s): R46.0 - VERY LOW LEVEL OF PERSONAL HYGIENE Status: Chronic (9) Self-care deficit for medication management Code(s): [id number] - Status: Chronic (10) Anemia in chronic kidney disease (CKD) Code(s): N18.9 - CHRONIC KIDNEY DISEASE, UNSPECIFIED; D63.1 - ANEMIA IN CHRONIC KIDNEY DISEASE Status: Chronic Qualifiers: Chronic kidney disease stage: stage 4 (severe) Qualified Code(s): N18.4 - Chronic kidney disease, stage 4 (severe); D63.1 - Anemia in chronic kidney disease - Plan Plan: This is a 67YOM with a pmh of poorly controlled DMII, chronic bilateral LE wounds, and CKD stage IV who presented as transfer from the [place] ED for evaluation of maggot infestation of chronic leg wounds. Chronic kidney disease stage IV - Nephrology on board, appreciate recs. - Cr continues to trend up. Increased to 3.56 this AM. eGFR also down to 21 today. - Will consider consulting gen surgery for possible placement of AV fistula today but will wait to see what nephrology recommends first. - Will continue IV albumin Q6H per nephro's recommendation as well as current BP meds for adequate BP control. - Will consider d/c lasix today as patient's renal function has continued to get worse and his has been satting well on RA for last several days. Anemia in CKD stage IV - Hgb down to 8.7 this AM from 10 yesterday. - Will continue to monitor. - Nephro on board, appreciate recs. Started ferrous sulfate and procrit today. Chronic lower extremity wounds likely secondary to venous/arterial insufficiency - Wound care consulted. - Will continue IV vancomycin. - Vascular and general surgery consulted yesterday. Appreciate recs. - Vascular recommended CTA of LEs once/if kidney function improves & other imaging if this is not possible to evaluate for suspected PVD. - Will continue routine wound care w/ medihoney per gen surg recs. - Will conslut nephro to get ok to proceed with imaging of LEs to assess circulation. Consider U/S vs. CTA from CV surg recs. Diabetes Mellitus - Patient's BG better controlled yesterday. Received his home dose of 60 units of lantus yesterday AM & required no sliding scale but AGAIN refused his night- time reduced dose of 10 units. - Will continue lower insulin doses discussed yesterday at 40 units QAM & 10 units QHS. Will once again child guidance counselor on importance of getting insulin. - Will resume continue meds w/ SSI PRN. Will continue accuchecks. - A1c elevated at 11 this AM. Needs DM education. h/o asthma? - Per nurse patient has h/o asthma. Will confirm with patient on rounds. - No wheezing noted on exam but will resume PRN duonebs per nurse's request. Unable to care for self - Per CM note patient lives alone and is unable to drive or adequately care for himself. - Plans to go to SNF from hospital and then move in with daughter after being discharged from SNF. Paperwork has been signed. HTN - Has been well-controlled last several days. - Will continue 10 Norvasc and coreg 12.5 BID as well as IV albumin. - Will consider d/c lasix as renal function continues to decline. - Will continue to monitor. Hyperkalemia - Resolved. - K has been WNLs last 2 days. - Dr. Arreola consulted. Appreciate recs. - Will continue to follow w QD BMPs. Dyspnea - Resolved. Patient was satting just above 90% on RA last several days. - Was likely 2/2 volume overload from CKD as echo was WNL. - Will continue with QD weights & strict Is & Os. - Will resume Duonebs PRN. - Will consider d/c lasix as patient's renal function continues to decline. Hypertensive urgency - Resolved. - BP much better controlled overnight w/ SBP in the 120s-140s. - Will continue to monitor.
--- NOTE | 2018-03-11 07:17 | PRG ---
DATE OF SERVICE: 03/11/2018 SUBJECTIVE: Mr. Suero is a 67-year-old black male who was admitted for bilateral leg infection. Kashif alvares were consulted on this patient for his chronic renal failure. Renal function has been slightly wor sening in the last few days. Please note he is on a diuretic. The diuretics were subsequently adjus shannon downwards. In addition, he continues to receive salt poor albumin. My plan is to extend albumin infusion for another day or so. Please note his CAREY inhibitor/ARB has been discontinued. This morn ing he voices no new complaint. He denies any chest pain, shortness of breath. OBJECTIVE: VITAL SIGNS: Blood pressure this 149/67, heart rate 83, respiratory rate 20, temperature 98, pulse o x 93%. GENERAL: Awake, supine, comfortable, not in distress. SKIN: Adequate turgor. HEENT: He has slightly pale conjunctivae, anicteric sclerae. NECK: No neck mass, no carotid bruits, no JVD. CHEST: No deformities. LUNGS: Decreased breath sounds. HEART: Normal sinus rhythm. No murmur, no gallops, no rubs. ABDOMEN: Globular, soft, nontender, no masses. EXTREMITIES: Trace edema. Positive for wound. MEDICATIONS: 03/11/2018 - Reviewed. LABORATORY: 03/11/2018 - White count 4.2, hemoglobin 8.77. Sodium 143, potassium 4.4, chloride 111, carbon dioxide 22, BUN 45, creatinine 3.56, GFR 21 mL per minute. Calcium 9.2. ASSESSMENT AND PLAN: 1. Acute kidney injury/chronic renal failure - superimposed prerenal azotemia. Continue albumin inf usion. Continue to adjust diuretics as needed. Please note his current GFR is 21 mL per minute. No indication for any dialysis access placement for the moment. We will review his GFR in the near fut ure and once the GFR is less than 20, will consider putting a dialysis access. This patient will als o be evaluated in the near future possible renal transplant if he is a candidate. 2. Anemia, on ferrous sulfate. Start Epogen 7500 units subcu every week. 3. Chronic leg edema - the patient is on diuretics and on local wound care.
[2018-03-11] MEDS: Ketorolac Tromethamine 0.5% Ophth Soln 3 ml Bottle EA EYE SCH ×4 (09:17→20:36)
[2018-03-11] MEDS: Aspirin 325 mg Enteric Coated Tablet PO SCH (09:17)
[2018-03-11] MEDS: Heparin 5,000 UNITS/ML VIAL SC SCH ×3 (09:18→20:36)
[2018-03-11] MEDS: Ferrous Sulfate 325 MG TAB PO SCH ×2 (09:18→20:36)
[2018-03-11] MEDS: Loratadine 10 MG TAB PO SCH (09:18)
[2018-03-11] MEDS: Carvedilol 6.25 MG TAB PO SCH ×2 (09:18→16:29)
[2018-03-11] MEDS: Amlodipine 10 MG TAB PO SCH (09:18)
[2018-03-11] MEDS: Atorvastatin Calcium 20 MG TAB PO SCH (09:18)
[2018-03-11] MEDS: Insulin NPH/Reg Insulin Hm 300 UNITS/3 ML VIAL SC SCH ×2 (09:18→20:54)
[2018-03-11] MEDS: Epoetin (ESRD) 20,000 UNITS/ML SC SCH (09:31)
--- NOTE | 2018-03-11 11:31 | PRG ---
DATE OF SERVICE: 03/11/2018 This is an addendum to the note of Dr. Caryn Angel. Mr. Suero is sitting comfortably in his chair, having breakfast this morning. He is in no acute di stress. Dr. Arreola had a long discussion with Mr. Suero about the importance of taking his Lantus in sulin. LABORATORY DATA: This morning, white count is 4200, hemoglobin 8.7, hematocrit 27.7. Chemistries: Sodium 141, potassium 4.4, chloride 111, BUN is 45 with creatinine of 3.56. His admission creatinine was 3.27. We appreciate the input from Dr. Leyva of the CV Service. In my judgment the patient has reached a b aseline creatinine and we should proceed with CTA of the lower extremities as I believe he likely has significant peripheral artery disease. We will discuss this with Dr. Arreola and the CV Service. Other ayala, continue with wound care and supportive care.
[2018-03-11] MEDS: Sodium Chloride 0.9% 1,000 ML IV SCH (11:33)
[2018-03-11 14:21] LABS: Vancomycin, Trough 19.5 ug/mL
[2018-03-11] MEDS: Vancomycin HCl 750 MG in Sodium Chloride 0.9% 250 ML 250 ML IVPB SCH (14:45)
[2018-03-12] MEDS: prednisoLONE 1% Ophth Susp 5 ml Bottle EA EYE SCH ×5 (00:07→23:48)
[2018-03-12] MEDS: Sodium Chloride 0.9% 1,000 ML IV SCH ×3 (03:02→22:42)
[2018-03-12] MEDS: Albumin 25% 25 GM/100 ML BOT IVPB SCH ×2 (03:50→09:58)
--- NOTE | 2018-03-12 06:32 | PDOC.FM ---
- Subjective Subjective: NAEO. Patient denies any SOB, chest pain, N/V/D, or constipation. However, did note expiratory wheezing w/o stethoscope but did not appreciate wheezing on auscultation. States he "made a compromise" with his nurse last night regarding his night time insulin dose and that the only would only give it to him if he needed it. Per nurse the patient refused again. - Objective MAR Reviewed: Yes Vital Signs & Weight: Vital Signs (12 hours) Temp Pulse Resp BP Pulse Ox 03/12/18 05:17 94 L 03/12/18 04:00 97.8 F 83 20 137/63 94 L 03/11/18 20:35 98.1 F 80 18 134/61 92 L Weight Admit Weight 130.181 kg Weight 124.341 kg I&O: 03/10/18 03/11/18 03/12/18 06:59 06:59 06:59 Intake Total 550 2266 3685 Output Total 2200 3350 0 Balance -1650 -1081 1631 Result Diagrams: 03/12/18 08:33 03/12/18 08:33 <Caryn Angel - Last Filed: 03/12/18 10:53> - Objective Vital Signs & Weight: Vital Signs (12 hours) Temp Pulse Resp BP BP Pulse Ox 03/12/18 16:58 172/82 H 03/12/18 15:50 98.6 F 84 24 H 172/82 H 86 L 03/12/18 09:58 83 03/12/18 09:57 153/72 H 03/12/18 09:55 98 F 81 20 153/72 H Weight Admit Weight 130.181 kg Weight 124.341 kg I&O: 03/11/18 03/12/18 03/13/18 06:59 06:59 06:59 Intake Total 2266 3685 Output Total 3350 0 Balance -1082 1637 Result Diagrams: 03/12/18 08:33 03/12/18 08:33 <Ramírez Peralta - Last Filed: 03/12/18 17:41> Phys Exam - Physical Examination Constitutional: NAD HEENT: sclera anicteric Terrible dentition Neck: supple, full ROM Respiratory: no rales, no rhonchi, wheezing present, clear to auscultation bilateral tracheal wheeze noted on exam but patient satting well able to converse freely w/o getting too SOB Cardiovascular: RRR, no significant murmur, no rub Gastrointestinal: soft, non-tender, positive bowel sounds moderate distension Musculoskeletal: edema present nonpitting likely 2/2 chronic venous stasis based on skin changes Neurological: non-focal, moves all 4 limbs Psychiatric: normal affect, A&O x 3 Skin: no rash Deviation from normal: B/L LEs wounds wrapped w/ medihoney and dressings -: No bleeding or discharge noted. <Caryn Angel - Last Filed: 03/12/18 10:53> Dx/Plan (1) CKD (chronic kidney disease) Code(s): N18.9 - CHRONIC KIDNEY DISEASE, UNSPECIFIED Status: Chronic Qualifiers: (2) Chronic wound of extremity Code(s): [id number] - Status: Chronic (3) Diabetes Code(s): E11.9 - TYPE 2 DIABETES MELLITUS WITHOUT COMPLICATIONS Status: Chronic Qualifiers: (4) HTN (hypertension) Code(s): I10 - ESSENTIAL (PRIMARY) HYPERTENSION Status: Chronic (5) Hyperkalemia Code(s): E87.5 - HYPERKALEMIA Status: Acute (6) Hypertensive urgency Code(s): I16.0 - HYPERTENSIVE URGENCY Status: Resolved (7) Hyperglycemia Code(s): R73.9 - HYPERGLYCEMIA, UNSPECIFIED Status: Resolved (8) Self-care deficit for bathing and hygiene Code(s): R46.0 - VERY LOW LEVEL OF PERSONAL HYGIENE Status: Chronic (9) Self-care deficit for medication management Code(s): [id number] - Status: Chronic (10) Anemia in chronic kidney disease (CKD) Code(s): N18.9 - CHRONIC KIDNEY DISEASE, UNSPECIFIED; D63.1 - ANEMIA IN CHRONIC KIDNEY DISEASE Status: Chronic Qualifiers: - Plan Plan: This is a 67YOM with a pmh of poorly controlled DMII, chronic bilateral LE wounds, and CKD stage IV who presented as transfer from the [facility] ED for evaluation of maggot infestation of chronic leg wounds. Chronic kidney disease stage IV - Nephrology on board, appreciate recs. - Cr relatively stable. Increased onyl to 3.62 this AM w/ an eGFR of 20.. - Will consider consulting gen surgery for possible placement of AV fistula based on nephro's recommendation. - Du continue albumin per Dr. Arreola's recs & continue current BP meds for adequate BP control. - Will continue to hold lasix today but consider restarting after patient's CTA if patient appears to be volume overloaded. Anemia in CKD stage IV - Hgb stable 8.9 at this AM. - Will continue to monitor. - Nephro on board, appreciate recs. Will continue ferrous sulfate and procrit. Chronic lower extremity wounds likely secondary to venous/arterial insufficiency - Wound care consulted. - Will continue IV vancomycin. - Vascular and general surgery consulted. Appreciate recs. - Proceeding w/ CTA of B/L LEs today to evaluate vasculature per CV surg recs. Will continue IVF hydration until procedure per nephro recs. Nephrology, Dr. Arreola , is aware of patient's current low renal function but feels the CTA is necessary as the patient WILL end up on dialysis with or without having this study done. Feels his legs needs to be evaluated now while in the hospital rather than delaying the test and having him come back to the hospital with a similar presentation later on. - Will continue routine wound care w/ medihoney per gen surg recs. Uncontrolled Diabetes Mellitus II - Patient's BG better controlled yesterday. Received 40 units of lantus yesterday AM & required no sliding scale but ONCE AGAIN refused his night-time reduced dose of 10 units after counseling regarding this for the last 2 mornings. - Will continue lower insulin doses discussed yesterday at 40 units QAM & 10 units QHS. Will once again high school counselor on importance of getting insulin. - Will continue accuchecks. Dyspnea - Patient was satting just above 90% on RA last several days. Does get SOB w/ exertion due to severe deconditioning. Is working w/ PT & OT. - Was likely 2/2 volume overload from CKD as echo was WNL. - Will continue with QD weights & strict Is & Os. - Will continue Duonebs PRN. - Will consider resuming lasix after CTA if patient once again appears volume overloaded after IVFs to prepare for imaging study. Unable to care for self - Per CM note patient lives alone and is unable to drive or adequately care for himself. - Plans to go to SNF from hospital and then move in with daughter after being discharged from SNF. Paperwork has been signed. Awaiting placement at this point. HTN - Has been well-controlled last several days. - Will continue 10 Norvasc and coreg 12.5 BID as well as IV albumin. - Will consider d/c lasix as renal function continues to decline but consider resuming after CTA if patient appears volume overloaded. - Will continue to monitor. Hyperkalemia - Resolved. - K has been WNLs last 3 days. - Dr. Arreola consulted. Appreciate recs. - Will continue to follow w QD BMPs. Hypertensive urgency - Resolved. - BP much better controlled overnight w/ SBP in the 120s-130s. - Will continue to monitor. <Caryn Angel - Last Filed: 03/12/18 10:53> Attending Addendum - Attending Addendum Date/Time: 03/12/18 1740 I personally evaluated the patient and discussed the management with Dr. Angel I agree with the History, Examination, Assessment and Plan documented above.. <Ramírez Peralta - Last Filed: 03/12/18 17:41>
[2018-03-12 08:55] LABS: #Eosinphils 0.4 thou/uL (0.0-0.7); #Lymphocytes 0.6 thou/uL (1.20-3.40); #Monocytes 0.6 thou/uL (0.11-0.59); #Neutrophils 4.5 thou/uL (1.40-6.50); %Basophils 0.5 % (0.0-1.0); %Eosinophils 6.8 % (0.0-10.0); %Monocytes 9.9 % (0.0-10.0); %Neutrophils 72.8 % (42.0-75.0); Hemoglobin 8.9 g/dL (14.0-18.0); Mean Corpuscular Hemoglobin 25.4 pg (27.0-31.0); Mean Corpuscular Volume 81.7 fL (78.0-98.0); Mean Platelet Volume 8.3 fL (7.4-10.4); Platelet Count 305 thou/uL (130-400); RBC Distribution Width 14.4 % (11.5-14.5); White Blood Cell (WBC) Count 6.2 thou/uL (4.8-10.8)
[2018-03-12 09:15] LABS: Anion Gap 19 mmol/L (10-20); BUN (Urea Nitrogen) 53 mg/dL (8.4-25.7); Calc. Creatinine Clearance 35 mL/min (70-130); Calcium 9.2 mg/dL (7.8-10.44); Carbon Dioxide 17 mmol/L (23-31); Chloride 110 mmol/L (98-107); Estimated GFR-MDRD 20; Glucose 220 mg/dL (80-115); Sodium 141 mmol/L (136-145)
[2018-03-12] MEDS: Ketorolac Tromethamine 0.5% Ophth Soln 3 ml Bottle EA EYE SCH ×4 (09:55→20:38)
[2018-03-12] MEDS: Insulin NPH/Reg Insulin Hm 300 UNITS/3 ML VIAL SC SCH ×2 (09:57→20:39)
[2018-03-12] MEDS: Carvedilol 6.25 MG TAB PO SCH ×2 (09:57→16:58)
[2018-03-12] MEDS: Amlodipine 10 MG TAB PO SCH (09:58)
[2018-03-12] MEDS: Aspirin 325 mg Enteric Coated Tablet PO SCH (09:58)
[2018-03-12] MEDS: Atorvastatin Calcium 20 MG TAB PO SCH (09:58)
[2018-03-12] MEDS: Loratadine 10 MG TAB PO SCH (09:58)
[2018-03-12] MEDS: Ferrous Sulfate 325 MG TAB PO SCH ×2 (09:58→20:39)
[2018-03-12] MEDS: Heparin 5,000 UNITS/ML VIAL SC SCH ×3 (09:59→20:39)
--- NOTE | 2018-03-12 10:59 | PDOC.FM ---
- Objective Vital Signs & Weight: Vital Signs (12 hours) Temp Pulse Resp BP BP Pulse Ox 03/12/18 09:58 83 03/12/18 09:57 153/72 H 03/12/18 05:17 94 L 03/12/18 04:00 97.8 F 83 20 137/63 94 L Weight Admit Weight 130.181 kg Weight 124.341 kg I&O: 03/11/18 03/12/18 03/13/18 06:59 06:59 06:59 Intake Total 2266 3685 Output Total 3350 0 Balance -1084 1635 Result Diagrams: 03/12/18 08:33 03/12/18 08:33 Attending Addendum - Attending Addendum Date/Time: 03/12/18 1047 I personally evaluated the patient and discussed the management with Dr. Rubin see her note for today. Patient with significant PAD not able to palpate pulse lower extremities. Patient for CTA today however Dr Squires(sp) Radiologist appropriately concerned with poor functioning Kidney and giving contrast Creatine appears stable 3.62 today however limb in jeopardy so risk / benefit favors study . Dr Arreola has extensively counseled patient and family concerning risk of contrast and they are aware of likelihood of eventual need for dialysis, family and patient aware and are in agreement and endorse understanding. Dr Arreola has agreed with need for CTA to evaluate patients poor healing wounds to his lower extremities.
--- NOTE | 2018-03-12 11:32 | PRG ---
DATE OF SERVICE: 03/12/2018 SUBJECTIVE: Mr. Suero is a 67-year-old black male with chronic renal failure from diabetic nephrop athy initially admitted for bilateral chronic leg wounds. The issue is that there might be underlyin g significant peripheral vascular disease to explain the poorly healing wound. However, due to his r enal dysfunction, there is some hesitancy to proceed with a CT angio. I did review his case and I sp nima with the daughter. They are aware that this patient will eventually need dialysis. I did explai n to them that with CT angio, the renal function might worsen and precipitate an earlier dialysis. T jossie are willing to proceed with this risk. The patient voices no new complaints. He denies any chest pain, shortness of breath. OBJECTIVE: VITAL SIGNS: Blood pressure 153/72, heart rate 83, respiratory rate 20, temperature 97.8, pulse ox 9 4%. GENERAL: Awake, alert, comfortable, not in distress. SKIN: Adequate turgor. HEENT: Slightly pale conjunctivae, anicteric sclerae. NECK: No neck mass, no carotid bruits, no JVD. CHEST: No deformities. LUNGS: Clear breath sounds. No wheezing, no crackles. HEART: Normal sinus rhythm. No murmurs, no gallops, no rubs. ABDOMEN: Globular, soft, nontender, no masses. MUSCULOSKELETAL: Positive for chronic leg dressing. MEDICATIONS: Medications of 03/12/2018 was reviewed. LABORATORY DATA: Laboratories of 03/12/2018; white count 6.2, hemoglobin 8.9. Sodium 141, potassium 5, chloride 110, carbon dioxide 17, BUN 53, creatinine 3.62, GFR 20 mL per minute. Calcium 9.2. ASSESSMENT AND PLAN: 1. Chronic renal failure from diabetic nephropathy, relatively unimproved in spite of volume repleti on - normal saline and albumin. I feel that this patient will eventually need dialytic intervention. We should just time him for his dialysis. Please note he still has significant adequate GFR of 20 mL per minute. Continue current management. Would use Lasix only judiciously. 2. Intermittent wheezing. Consider starting DuoNeb q.6 h. 3. Anemia, on weekly Epogen. 4. Peripheral vascular disease. I discussed the case with [facility] and we have decided to proceed with the planned CT angio. The patient and the daughter is aware about the risk of the said procedure. They are willing to proceed with this.
--- NOTE | 2018-03-12 15:48 | CT ---
CT ANGIOGRAM ABDOMEN AND PELVIS WITH IV CONTRAST CT ANGIOGRAM BILATERAL LOWER EXTREMITIES WITH IV CONTRAST AND 3D RECONSTRUCTIONS 03/12/18 HISTORY: Nonhealing bilateral lower extremity wounds and poor circulation. Patient with decreased renal functi on. However, Dr. Arreola, wellness health coach, is aware of these findings. Risk/benefit ratio warrants imaging with CT angiogram per Dr. Arreola and primary service. FINDINGS: There is eventration of the right hemidiaphragm with large hiatal hernia present. Volume loss is pres ent at the right lung base with tiny right pleural effusion. There is atelectasis at the left lung ba se. There is an irregular focus of enhancement seen within the posterior right hepatic lobe, likely relat ed to a transient hepatic arterial difference due to phase of imaging. There is question of slight ga llbladder wall thickening, but this may be attributable to incomplete distention for the appearance o f gallbladder wall thickening. The spleen, pancreas, bilateral adrenal glands, and kidneys demonstrate a normal CT appearance for ar terial phase of imaging. Hayes catheter is present in a decompressed urinary bladder. There is colonic diverticulosis. No free fluid, fluid collection or lymphadenopathy is seen in the abdomen or pelvis. There is subcuta neous edema seen laterally about the abdomen as well as anteriorly in the pelvis. Vascular calcifications are seen in the abdominal aorta and involving the iliac arteries, but there i s no evidence of an abdominal aortic aneurysm or dissection. The iliac arteries are patent bilaterall y. The celiac, superior mesenteric, and inferior mesenteric arteries are patent. There are single patent bilateral renal arteries visualized. Bilateral lower extremity runoff to the feet with IV contrast and 3D reconstructions. RIGHT LOWER EXTREMITY: There is mild atherosclerotic vascular calcifications seen in the lower extremity arterial vessels. M ild focal area of narrowing is seen in the proximal right superficial femoral artery. The remainder o f the right superficial femoral artery, profunda femoral artery as well as the right lower extremity common femoral artery are patent. The popliteal artery is patent. There are vascular calcifications seen involving the tibial peroneal vessels on the right, but there does appear to be three vessel runoff to the right lower extremity with dorsalis pedis and posterior tibial arteries seen at the ankle and the foot. Portion of the left posterior tibial artery proximall y is difficult to evaluate due to vascular calcifications. LEFT LOWER EXTREMITY: The left common femoral and profunda femoral arteries are patent. Mild atherosclerotic vascular calci fications are seen in the left superficial femoral artery, but the superficial femoral artery is castellanos nt. There is mild eccentric atherosclerotic plaque seen in the proximal above the knee, left poplitea l artery with mild narrowing. Left popliteal artery is otherwise patent. Vascular calcifications are seen at tibioperoneal vessels which does limit evaluation, but there does appear to be three vessel r unoff to the left lower extremity, dorsalis pedis and posterior tibial arteries seen at the level of the ankle. There is bilateral lower extremity edema diffusely. Greater degree of edema and skin thickening is se en involving the more distal lower extremities bilaterally. IMPRESSION: 1. Scattered atherosclerotic vascular disease seen throughout the abdominal aorta as well as inv olving the lower extremity arterial vessels. However, no significant stenosis is seen, and there does appear to be three vessel runoff to the bilateral lower extremities. 2. Diffuse subcutaneous edema involving the lower extremities, greater distally. 3. Single patent bilateral renal arteries. 4. Eventration/elevation right hemidiaphragm with large hiatal hernia. 5. Atelectasis at each lung base. 6. Colonic diverticulosis. 7. Cardiomegaly. POS: [facility]
[2018-03-12] MEDS: Vancomycin HCl 750 MG in Sodium Chloride 0.9% 250 ML 250 ML IVPB SCH (16:58)
[2018-03-12] MEDS ORDERED: Furosemide 20 MG/2 ML VIAL SLOW IVP SCH (23:00)
[2018-03-13] MEDS: prednisoLONE 1% Ophth Susp 5 ml Bottle EA EYE SCH ×3 (05:32→18:04)
--- NOTE | 2018-03-13 06:29 | PDOC.FM ---
- Subjective Subjective: NAEO. Patient denies SOB but has notable upper respiratory wheezing and mild increased work of breathing on exam. Is satting above 90 on 2L NC which was restarted last night. Patient also denies any chest pain, N/V/D or nasal congestions. Endorses constipation although per nurse patient had a BM the night of the . - Objective MAR Reviewed: Yes Vital Signs & Weight: Vital Signs (12 hours) Temp Pulse Resp BP Pulse Ox 03/13/18 05:28 92 L 03/13/18 03:17 98.8 F 83 20 158/71 H 92 L 03/12/18 23:26 95 03/12/18 23:23 88 28 H 96 03/12/18 20:30 98.0 F 68 20 138/65 94 L Weight Admit Weight 130.181 kg Weight 124.341 kg I&O: 03/11/18 03/12/18 03/13/18 06:59 06:59 06:59 Intake Total 2266 3685 2315 Output Total 3350 2050 1400 Balance -1084 1635 915 Result Diagrams: 03/13/18 06:33 03/13/18 06:33 Radiology Reviewed by me: Yes (Aortagram w/ runoff yesterday not significant for any LE stenosis) <Caryn Angel - Last Filed: 03/13/18 11:59> - Objective Vital Signs & Weight: Vital Signs (12 hours) Temp Pulse Pulse Pulse Resp BP BP 03/13/18 12:05 96.7 F L 83 18 03/13/18 10:29 75 144/70 H 03/13/18 10:27 172/82 H 03/13/18 08:50 90 96 169/79 H 03/13/18 08:30 96.8 F L 75 20 03/13/18 05:28 03/13/18 03:17 98.8 F 83 20 BP BP Pulse Ox Pulse Ox Pulse Ox 03/13/18 12:05 160/78 H 99 03/13/18 10:29 03/13/18 10:27 03/13/18 08:50 150/71 H 96 90 L 03/13/18 08:30 144/70 H 75 L 03/13/18 05:28 92 L 03/13/18 03:17 158/71 H 92 L Weight Admit Weight 130.181 kg Weight 123.462 kg I&O: 03/12/18 03/13/18 03/14/18 06:59 06:59 06:59 Intake Total 3689 2005 Output Total 4081 2600 400 Balance 1635 165 -400 Result Diagrams: 03/13/18 06:33 03/13/18 06:33 <Ramírez Peralta - Last Filed: 03/13/18 13:09> Phys Exam - Physical Examination mild distress 2/2 increased work of breathing but able to answer questions w/o pausing to catch his breath HEENT: moist MMs, sclera anicteric horrible dentition Neck: supple, full ROM Respiratory: no wheezing in upper lobes bilaterally Cardiovascular: RRR, no significant murmur Gastrointestinal: non-tender, positive bowel sounds tense w/ moderate distention Musculoskeletal: edema present trace pitting edema in B/L LEs just below knees Neurological: non-focal, moves all 4 limbs Psychiatric: normal affect Deviation from normal: AxO x 2 to person and time, not place Skin: no rash, normal turgor <Caryn Angel - Last Filed: 03/13/18 11:59> Dx/Plan (1) CKD (chronic kidney disease) Code(s): N18.9 - CHRONIC KIDNEY DISEASE, UNSPECIFIED Status: Chronic Qualifiers: Chronic kidney disease stage: stage 4 (severe) Qualified Code(s): N18.4 - Chronic kidney disease, stage 4 (severe) (2) Chronic wound of extremity Code(s): [id number] - Status: Chronic (3) Diabetes Code(s): E11.9 - TYPE 2 DIABETES MELLITUS WITHOUT COMPLICATIONS Status: Chronic Qualifiers: Diabetes mellitus type: type 2 Diabetes mellitus complication status: with kidney complications Diabetes mellitus complication detail: with chronic kidney disease Chronic kidney disease stage: stage 4 (severe) (4) HTN (hypertension) Code(s): I10 - ESSENTIAL (PRIMARY) HYPERTENSION Status: Chronic (5) Hyperkalemia Code(s): E87.5 - HYPERKALEMIA Status: Acute (6) Hypertensive urgency Code(s): I16.0 - HYPERTENSIVE URGENCY Status: Resolved (7) Hyperglycemia Code(s): R73.9 - HYPERGLYCEMIA, UNSPECIFIED Status: Resolved (8) Self-care deficit for bathing and hygiene Code(s): R46.0 - VERY LOW LEVEL OF PERSONAL HYGIENE Status: Chronic (9) Self-care deficit for medication management Code(s): [id number] - Status: Chronic (10) Anemia in chronic kidney disease (CKD) Code(s): N18.9 - CHRONIC KIDNEY DISEASE, UNSPECIFIED; D63.1 - ANEMIA IN CHRONIC KIDNEY DISEASE Status: Chronic Qualifiers: Chronic kidney disease stage: stage 4 (severe) Qualified Code(s): N18.4 - Chronic kidney disease, stage 4 (severe); D63.1 - Anemia in chronic kidney disease - Plan Plan: This is a 67YOM with a pmh of poorly controlled DMII, chronic bilateral LE wounds, and CKD stage IV who presented as transfer from the [place] ED for evaluation of maggot infestation of chronic leg wounds. AMS 2/2 vs. infection of unknown etiology - Likely 2/2 as vitals have been WNLs other than periodically elevated BPs. Patient oriented to person and time just not place. Will continue to reorient and open shades during the day & keep the TV on. - However, will check a UA & d/c adam catheter today as patient has had his adam in since the . - Will continue IV abx for wound infection PPx/treatment. - Will continue to monitor closely for any significant changes in mentation and hemodynamic stability. Chronic kidney disease stage IV - Nephrology on board, appreciate recs. - Renal function continues to decrease QD. Cr increased to 3.94 this AM w/ an eGFR of 19. - Will consider consulting gen surgery for possible placement of AV fistula based on nephro's recommendation. - Du continue current BP meds for adequate BP control to maintain adequate renal perfusion. - Will give 80mg IV lasix today per nephro's recommendation as patient appears to be volume overloaded. Dyspnea likely 2/2 volume overload vs. anemia - Patient continues to maintain sats above 90% on RA & 2L NC for the last several days. NC restarted last night due to increased work of breathing & AMS per nurse. Was given 20 mg IV lasix. - Does get SOB w/ exertion due to severe deconditioning. Is working w/ PT & OT. - Likely 2/2 volume overload from CKD but could also be 2/2 anemia. However, Hgb has improved since yesterday and patient does appear to be slightly volume overloaded on exam. Likely 2/2 fluids given in prep for aortogram done yesterday. - Will continue with QD diuressi as approved by nephro. - Will continue with QD weights & strict Is & Os. - Will continue Duonebs PRN & TRUPTI claritin. Anemia in CKD stage IV - Hgb stable at 9.0 this AM. - Will continue to monitor. - Nephro on board, appreciate recs. Will continue QD ferrous sulfate and procrit. Chronic lower extremity wounds likely secondary to venous/arterial insufficiency - Marked improvement in wounds since admission. - Wound care on board. Will continue routine care w/ medihoney per gen surg recs. - Will continue IV vancomycin for infection PPx. On day #4. Last trough from yesterday was 20. Will consider consulting pharmacy regarding any dose adjustments that need to be made due to patient's decline in renal function. Will continue to complete a 7 day course. - Vascular and general surgery consulted. Appreciate recs. - Proceeding w/ CTA of B/L LEs today to evaluate vasculature per CV surg recs. Will continue IVF hydration until procedure per nephro recs. Nephrology, Dr. Arreola , is aware of patient's current low renal function but feels the CTA is necessary as the patient WILL end up on dialysis with or without having this study done. Feels his legs needs to be evaluated now while in the hospital rather than delaying the test and having him come back to the hospital with a similar presentation later on. Uncontrolled Diabetes Mellitus II - Patient's BG better controlled yesterday. Received scheduled dosing of 40 units in the AM & 10 units QHS. - However, BG levels have been consistently >200 last several checks. - Will consider increasing his TRUPTI insulin doses as tolerated by the patient. - Will continue accuchecks. HTN - Has been well-controlled last several days. - Will continue 10 Norvasc and coreg 12.5 BID as well as diuresis w/ lasix as tolerated by patient. - Will continue to monitor. Unable to care for self - Per CM note patient lives alone and is unable to drive or adequately care for himself. - Plans to go to SNF from hospital and then move in with daughter after being discharged from SNF. Paperwork has been signed. Awaiting placement at this point. Hyperkalemia - Resolved. - K has been WNLs last 4 days. - Dr. Arreola consulted. Appreciate recs. - Will continue to follow w QD BMPs. Hypertensive urgency - Resolved. - BP much better controlled overnight w/ SBP in the 120s-130s. - Will continue to monitor. <Caryn Angel - Last Filed: 03/13/18 11:59> Attending Addendum - Attending Addendum Date/Time: 03/13/18 1304 I personally evaluated the patient and discussed the management with Dr. Angel I agree with the History, Examination, Assessment and Plan documented above with any addition or exceptions noted below. Precarious RFTs will continue observation for any significant AMS changes, Lower Extremities still with significant edema wound management would be improved with diuresis note IV lasix ordered today. CTA finding reviewed no re-vascularization opportunity. Rec consider basal insulin over 70/30 for better BS control and improved wound healing as inpatient. <Ramírez Peralta - Last Filed: 03/13/18 13:09>
[2018-03-13 06:40] LABS: #Eosinphils 0.4 thou/uL (0.0-0.7); #Lymphocytes 0.5 thou/uL (1.20-3.40); #Monocytes 0.5 thou/uL (0.11-0.59); #Neutrophils 5.3 thou/uL (1.40-6.50); %Basophils 0.3 % (0.0-1.0); %Eosinophils 5.7 % (0.0-10.0); %Lymphocytes 8.1 % (21.0-51.0); %Monocytes 7.1 % (0.0-10.0); %Neutrophils 78.8 % (42.0-75.0); Mean Corpuscular HGB CONC 31.2 g/dL (32.0-36.0); Mean Corpuscular Hemoglobin 25.5 pg (27.0-31.0); Mean Corpuscular Volume 81.6 fL (78.0-98.0); Platelet Count 315 thou/uL (130-400); RBC Distribution Width 14.4 % (11.5-14.5); Red Blood Cell (RBC) Count 3.54 mill/uL (4.70-6.10); White Blood Cell (WBC) Count 6.8 thou/uL (4.8-10.8)
[2018-03-13 07:00] LABS: Anion Gap 16 mmol/L (10-20); BUN (Urea Nitrogen) 57 mg/dL (8.4-25.7); Calc. Creatinine Clearance 32 mL/min (70-130); Carbon Dioxide 19 mmol/L (23-31); Chloride 110 mmol/L (98-107); Estimated GFR-MDRD 19; Glucose 211 mg/dL (80-115); Sodium 140 mmol/L (136-145)
[2018-03-13] MEDS ORDERED: Polyethylene Glycol 3350 17 GM Packet PO SCH (10:00)
[2018-03-13] MEDS: Carvedilol 6.25 MG TAB PO SCH ×2 (10:27→17:05)
[2018-03-13] MEDS: Aspirin 325 mg Enteric Coated Tablet PO SCH (10:28)
[2018-03-13] MEDS: Ferrous Sulfate 325 MG TAB PO SCH ×2 (10:28→21:05)
[2018-03-13] MEDS: Atorvastatin Calcium 20 MG TAB PO SCH (10:28)
[2018-03-13] MEDS: Loratadine 10 MG TAB PO SCH (10:29)
[2018-03-13] MEDS: Amlodipine 10 MG TAB PO SCH (10:29)
[2018-03-13] MEDS: Heparin 5,000 UNITS/ML VIAL SC SCH ×3 (10:30→21:05)
[2018-03-13] MEDS: Ketorolac Tromethamine 0.5% Ophth Soln 3 ml Bottle EA EYE SCH ×4 (10:31→21:06)
[2018-03-13] MEDS: Insulin NPH/Reg Insulin Hm 300 UNITS/3 ML VIAL SC SCH (10:32)
[2018-03-13] MEDS ORDERED: Furosemide 100 MG/10 ML VIAL SLOW IVP SCH (10:45)
--- NOTE | 2018-03-13 11:15 | PRG ---
DATE OF SERVICE: 03/13/2018 SERVICE: Renal Medicine. SUBJECTIVE: Mr. Suero is a 67-year-old black male with known history of chronic renal failure from diabetic nephropathy and admitted for bilateral leg wound. He underwent a CT angiogram of his lower extremities. The findings showed scattered atherosclerotic vascular disease; however, no significan t stenosis was seen at that time. He has a single patent bilateral renal arteries. There is a chron ic lower leg edema noted. This morning, he has some mildly short of breath. He denies any chest pain. OBJECTIVE: VITAL SIGNS: Blood pressure is 150/71, heart rate 96, respiratory rate 20, pulse ox 95%, temperature 96.8. GENERAL: Awake, supine, not in overt distress. SKIN: Adequate turgor. HEENT: He has slightly pale conjunctivae, anicteric sclerae. NECK: No neck mass, no carotid bruits, no JVD. CHEST: No deformities. LUNGS: Decreased breath sounds. No wheezing. HEART: Normal sinus rhythm. No murmur, no gallops, no rubs. ABDOMEN: Globular, soft, nontender, no masses. EXTREMITIES: Positive for edema. Positive for chronic leg wound dressing. MEDICATIONS: Of 03/13/2018 was reviewed. LABORATORY DATA: Of 03/13/2018, white count 6.8, hemoglobin 9, sodium 140, potassium 5, chloride 110 , carbon dioxide 19, BUN 57, creatinine 3.94, GFR 19 mL per minute, glucose 211, calcium 9.0. ASSESSMENT AND PLAN: 1. Chronic renal failure from diabetic nephropathy, worsening renal dysfunction for the last several days. This is progression. Please note, he also has nephrotic range proteinuria. Due to the compl aint of shortness of breath, we will give a one-time dose of Lasix 80 mg IV x1 dose. Depending on th e renal function, we will time when we will initiate dialysis with this patient. 2. ? of peripheral vascular disease. CT angio of the lower extremities did not show any significant stenosis that is amenable for surgical intervention at the present time. Continue medical managemen t. 3. Chronic anemia, currently on weekly Epogen. 4. Chronic shortness of breath - patient most likely has a diastolic dysfunction, last EF was within normal, but chest x-ray showed increased lung markings several days ago, Lasix 80 mg x1 dose will be given.
[2018-03-13] MEDS ORDERED: Insulin Regular 300 UNITS/3 ML VIAL SC PRN (12:08)
[2018-03-13 12:20] LABS: Bilirubin Negative (Negative); Blood, Urine Large (Negative); Clarity CLOUDY (Clear); Glucose, Urine (Dipstick) 500 mg/dL (Negative); Leukocyte Large (Negative); Nitrite Negative (Negative); Protein, Urine (Dipstick) 300 mg/dL (Neg-Trace); Specific Gravity, Urine 1.018 (1.002-1.036); Urobilinogen 0.2 mg/dL (0.2-1.0); pH, Urine 5.5 (5.0-9.0)
[2018-03-13 12:23] LABS: Bacteria/HPF None Seen HPF (None Seen); Pathc Cast-AUWi Flag 2.32 (0-2.49); RBC/HPF GREATER THAN 50-TNTC HPF (0-3); Squamous Epithelial 0-3 HPF (0-3)
[2018-03-13] MEDS ORDERED: Insulin NPH/Reg Insulin Hm 300 UNITS/3 ML VIAL SC SCH ×2 (12:36→12:37)
[2018-03-13 12:37] LABS: Hyaline Casts/LPF NONE SEEN LPF (0-3 Hyaline)
[2018-03-13] MEDS ORDERED: Insulin Glargine 15 UNITS in Pre-Filled Syringe 1 EACH SC SCH (13:38)
[2018-03-13] MEDS: Vancomycin HCl 750 MG in Sodium Chloride 0.9% 250 ML 250 ML IVPB SCH (14:16)
--- NOTE | 2018-03-13 17:08 | EKG ---
Test Reason : ELEVATED K+ Blood Pressure : / mmHG Vent. Rate : 069 BPM Atrial Rate : 069 BPM P-R Int : 146 ms QRS Dur : 140 ms QT Int : 440 ms P-R-T Axes : 047 130 033 degrees QTc Int : 471 ms Normal sinus rhythm Right bundle branch block Left posterior fascicular block Bifascicular block Abnormal ECG When compared with ECG of 11-SEP-1993 16:54, Significant changes have occurred Confirmed by DONI PALACIOS (2) on 03/13/2018 5:08:07 PM Referred By: MORIAH Confirmed By:DONI PALACIOS
[2018-03-14] MEDS: prednisoLONE 1% Ophth Susp 5 ml Bottle EA EYE SCH ×5 (00:04→23:49)
[2018-03-14 05:34] LABS: #Eosinphils 0.4 thou/uL (0.0-0.7); #Lymphocytes 0.8 thou/uL (1.20-3.40); #Monocytes 0.6 thou/uL (0.11-0.59); #Neutrophils 3.8 thou/uL (1.40-6.50); %Basophils 0.4 % (0.0-1.0); %Eosinophils 6.7 % (0.0-10.0); %Monocytes 10.5 % (0.0-10.0); %Neutrophils 68.3 % (42.0-75.0); Mean Corpuscular HGB CONC 30.4 g/dL (32.0-36.0); Mean Corpuscular Hemoglobin 25.2 pg (27.0-31.0); Mean Corpuscular Volume 82.7 fL (78.0-98.0); Mean Platelet Volume 7.9 fL (7.4-10.4); Platelet Count 324 thou/uL (130-400); RBC Distribution Width 14.5 % (11.5-14.5); Red Blood Cell (RBC) Count 3.56 mill/uL (4.70-6.10); White Blood Cell (WBC) Count 5.6 thou/uL (4.8-10.8)
[2018-03-14 05:46] LABS: Anion Gap 14 mmol/L (10-20); BUN (Urea Nitrogen) 60 mg/dL (8.4-25.7); Calc. Creatinine Clearance 31 mL/min (70-130); Calcium 8.9 mg/dL (7.8-10.44); Carbon Dioxide 21 mmol/L (23-31); Chloride 110 mmol/L (98-107); Estimated GFR-MDRD 18; Glucose 112 mg/dL (80-115); Potassium 4.9 mmol/L (3.5-5.1); Sodium 140 mmol/L (136-145)
--- NOTE | 2018-03-14 05:52 | PDOC.FM ---
- Subjective Subjective: Pt. states he did well overnight. He denies dyspnea, cp, abdominal pain, or leg pain. Pt. states he gets up with PT. - Objective MAR Reviewed: Yes Vital Signs & Weight: Vital Signs (12 hours) Temp Pulse Resp BP Pulse Ox 03/14/18 04:00 98 F 67 24 H 131/62 98 03/13/18 20:00 96 03/13/18 19:35 97.6 F 66 20 135/70 100 Weight Admit Weight 130.181 kg Weight 123.462 kg I&O: 03/12/18 03/13/18 03/14/18 06:59 06:59 06:59 Intake Total 3685 2765 Output Total 2050 2600 500 Balance 1635 165 -500 Result Diagrams: 03/14/18 05:15 03/14/18 05:15 <Godfrey Calderon - Last Filed: 03/14/18 15:16> - Objective Vital Signs & Weight: Vital Signs (12 hours) Temp Pulse Resp BP Pulse Ox 03/14/18 15:51 97.3 F L 79 22 H 138/72 94 L 03/14/18 11:56 97.7 F 67 18 130/63 96 03/14/18 08:36 98 F 79 18 139/69 96 03/14/18 08:00 96 Weight Admit Weight 130.181 kg Weight 122.924 kg I&O: 03/13/18 03/14/18 03/15/18 06:59 06:59 06:59 Intake Total 2765 150 Output Total 2600 950 Balance 165 -800 Result Diagrams: 03/14/18 05:15 03/14/18 05:15 <Rimma Gonzales - Last Filed: 03/14/18 17:15> Phys Exam - Physical Examination Constitutional: NAD HEENT: moist MMs mild crackles in bases Cardiovascular: RRR, no significant murmur Gastrointestinal: non-tender, positive bowel sounds +1 pitting edema to mid abdomen Musculoskeletal: edema present 2+ through calfs and thighs Neurological: non-focal, moves all 4 limbs Psychiatric: normal affect Deviation from normal: wounds on bilateral legs <Godfrey Calderon - Last Filed: 03/14/18 15:16> Dx/Plan (1) Anemia in chronic kidney disease (CKD) Code(s): N18.9 - CHRONIC KIDNEY DISEASE, UNSPECIFIED; D63.1 - ANEMIA IN CHRONIC KIDNEY DISEASE Status: Chronic Qualifiers: Chronic kidney disease stage: stage 4 (severe) Qualified Code(s): N18.4 - Chronic kidney disease, stage 4 (severe); D63.1 - Anemia in chronic kidney disease (2) Chronic wound of extremity Code(s): [id number] - Status: Chronic (3) Diabetes Code(s): E11.9 - TYPE 2 DIABETES MELLITUS WITHOUT COMPLICATIONS Status: Chronic Qualifiers: Diabetes mellitus type: type 2 Diabetes mellitus complication status: with kidney complications Diabetes mellitus complication detail: with chronic kidney disease Chronic kidney disease stage: stage 4 (severe) (4) HTN (hypertension) Code(s): I10 - ESSENTIAL (PRIMARY) HYPERTENSION Status: Chronic (5) Self-care deficit for bathing and hygiene Code(s): R46.0 - VERY LOW LEVEL OF PERSONAL HYGIENE Status: Chronic (6) Self-care deficit for medication management Code(s): [id number] - Status: Chronic - Plan Plan: This is a 67 yo male with PMH of DM 2, HTN, anemia of chronic disease, CKD stage IV AMS 2/2 ing vs. Infection -We will continue to maximize stimulation during the day and minimize at night, inlcuding noise, TV, opening/closing blinds, and attempting to reorient during times of AMS. Pt. is currently on Vanc for leg wound. Urine Cx from 03/10 grew no bacteria. UA from 03/13 shows no bacteria. CKD IV -Nephrology is on board. Kidney function continues to worsen per labs. We will continue BP meds for control and assess how yesterday's dose of lasix has changes his clinical picture. Dyspnea likely 2/2 volume overload vs. anemia vs. atelectasis -Pt. had sats of 97 on RA upon admission. Pt. has negative water balance at this point. Hgb is down from 10.7 to 9.0. I elizabeth encouraged incentive spirometer use today. We are continuing daily weights but no longer monitoring strict I&Os. We will continue duonebs PRN and consider scheduling based on clinical exam. Pt. is severely fluid overloaded. We will consider further diuresing. Anemia in CKD -Stable at 9.0 we will appreciate nephro recs and continue ferrous sulfate and procrit Chronic lower extremity wounds likely secondary to venous/arterial insufficiency -Wound has improved since admission. Wound care is on board and will continue routine care w/ medihoney per gen surg recs. Day 5 of IV vanc. with plan for 7 day course. Vascular and general surgery consulted. We will continue to appreciate their recs. CTA of B/L LE shows no significant stenosis. Uncontrolled DM 2 -Improving BG below 200. We will continue current regiment and adjust as needed. Continue accuchecks HTN -Improved control on 10 norvasc and 12.5 BID as well as diuresis w/lasix Unable to care for self -Per CM pt. lives alone and is unable to care for himself or drive. Plan is to DC to SNF and then transition to live with daughter. Awaiting placement. Hyperkalemia -Resolved for 5 days. We will continue monitoring. Pt is stable. We are transferring him to the floor. Hypertensive urgency -Resolved Code: full Prophylaxis: Heparin Family: none at bedside Disposition: SNF, pending approval <Godfrey Calderon - Last Filed: 03/14/18 15:16> Attending Addendum - Attending Addendum Date/Time: 03/14/18 [id number] I personally evaluated the patient and discussed the management with Dr. Calderon. I agree with the History, Examination, Assessment and Plan documented above with any addition or exceptions noted below. Pt with pitting edema to abdomen. Started on lasix 40 mg daily. Pt understands that this can worsen renal function. Dr. Arreola is monitoring closely and will start dialysis when indicated. <Rimma Gonzales - Last Filed: 03/14/18 17:15>
[2018-03-14] MEDS: Atorvastatin Calcium 20 MG TAB PO SCH (08:38)
[2018-03-14] MEDS: Aspirin 325 mg Enteric Coated Tablet PO SCH (08:38)
[2018-03-14] MEDS: Amlodipine 10 MG TAB PO SCH (08:38)
[2018-03-14] MEDS: Carvedilol 6.25 MG TAB PO SCH ×2 (08:38→17:03)
[2018-03-14] MEDS: Ferrous Sulfate 325 MG TAB PO SCH ×2 (08:39→20:29)
[2018-03-14] MEDS: Heparin 5,000 UNITS/ML VIAL SC SCH ×3 (08:39→20:29)
[2018-03-14] MEDS: Loratadine 10 MG TAB PO SCH (08:39)
[2018-03-14] MEDS: Ketorolac Tromethamine 0.5% Ophth Soln 3 ml Bottle EA EYE SCH ×4 (08:50→20:30)
[2018-03-14 09:27] VITALS: BMI 41.2
--- NOTE | 2018-03-14 09:42 | PRG ---
DATE OF SERVICE: 03/14/2018 SERVICE: Renal Medicine. SUBJECTIVE: Mr. Suero is a 67-year-old black male with known history of chronic renal failure, angeline betic nephropathy, and was admitted for infected bilateral leg wounds. He has also progressive azote abdon, which is probably a reflection of the worsening renal dysfunction from diabetic nephropathy. I gave him a 1-time dose of Lasix for his shortness of breath yesterday. His breathing is much improve d. My plan is to consider placing him on a regular dose of Lasix at 40 mg tab once a day. His renal function is worsening and I will time his dialysis. His GFR is still 19 mL per minute. 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 No other complaints today. PHYSICAL EXAMINATION: VITAL SIGNS: Blood pressure is 139/69, heart rate 79, respiratory rate 18, temperature 98, pulse ox 96%. GENERAL EXAM: Awake, alert, comfortable, not in distress. SKIN: Adequate turgor. HEENT: He has slightly pale conjunctivae, anicteric sclerae. NECK: No neck mass, no carotid bruits, no JVD. CHEST: No deformities. LUNGS: Bibasilar crackles. HEART: Normal sinus rhythm. No murmur, no gallops, no rubs. ABDOMEN: Globular, soft, nontender, no masses. EXTREMITIES: Positive for edema. Positive for bilateral wound dressing. Medications of 03/14/2018 reviewed. LABORATORY DATA: Laboratories of 03/14/2018, white count 5.6, hemoglobin 9. Sodium 140, potassium 4 .9, chloride 110, carbon dioxide 19, BUN 60, creatinine 4.13, GFR 18 mL per minute. Calcium 8.9. ASSESSMENT AND PLAN: 1. Volume overload - Lasix 40 mg tab once a day. 2. Chronic renal failure, progressive worsening renal dysfunction. We will time the dialysis when t he GFR is less than 10-15 mL per minute. At the present time, there is no emergent indication for an y dialytic intervention. 3. Chronic leg venous stasis - supportive care. 4. Anemia, on weekly Epogen.
[2018-03-14] MEDS: Insulin Glargine 60 UNITS in Pre-Filled Syringe 1 EACH SC SCH (10:22)
--- NOTE | 2018-03-14 12:17 | PQF ---
CLINICAL DOCUMENTATION IMPROVEMENT CLARIFICATION FORM: ICD-10 Updated PLEASE DO AN ADDENDUM TO THE PROGRESS NOTE WITH ANY DOCUMENTATION UPDATES OR ADDITIONS AND CARRY THROUGH TO DC SUMMARY. THANK YOU. DATE: 03/14/18; 03/15/18; 03/17/18 ATTN: Dr. Calderon/ Attending Dr. Peralta; Dr. Gonzales Please exercise your independent, professional judgment in responding to the clarification form. Clinical indicators are provided on the bottom of this form for your review Please check appropriate box(s): [ ] Acute Respiratory Failure: [ ] with Hypoxia [ ] with Hypercapnia [ ] Acute On Chronic Respiratory Failure: [ ] with Hypoxia [ ] with Hypercapnia [ ] Acute Respiratory Failure due to: [ ] Chronic Respiratory Failure only [ ] with Hypoxia [ ] with Hypercapnia [ x ] Other diagnosis: likely CHF with acute exacerbation, resolving. [ ] Unable to determine In addition, please specify: Present on Admission (POA): [ x ] Yes [ ] No [ ] Unable to determine For continuity of documentation, please document condition throughout progress notes and discharge summary. Thank You. CLINICAL INDICATORS - SIGNS / SYMPTOMS / LABS NURSING VS: 03/12 @ 1550: O2 SAT 86%ROOM AIR RESP 24 03/12 @ 2030: O2 SAT 94% 2L O2 NC 03/13 @ 0830: O2 SAT 75% ROOM AIR PN 03/13: DYSPNEA LIKELY 2/2 VOLUME OVERLOAD VS ANEMIA -PT CONTINUES TO MAINTAIN SATS ABOVE 90% ON RA & 2L NC FOR THE LAST SEVERAL DAYS. NC RESTARTED LAST NIGHT DUE TO INCREASED WORK OF BREATHING & AMS PER NURSE. WAS GIVEN 20 MG IV LASIX RENAL PN 03/13: CHRONIC SHORTNESS OF BREATH- PT MOST LIKELY HAS A DIASTOLIC DYSFUNCTION, LAST EF WAS WITHIN NORMAL, BUT CHEST X- RAY SHOWED INCREASED LUNG MARKINGS SEVERAL DAYS AGO RISKS: H&P: PMH: DM, HTN, CKD. ENDORSES 1 MONTH HX OF SOB ON EXERTION AND ORTHOPNEA. PN 03/14: PT IS SEVERELY FLUID OVERLOADED. TREATMENT: ORDER 03/09: RESP: O2 TO KEEP SATS 92% CPOE 03/09: LASIX 80 MG SLOW IVP. DC'D 03/10 CPOE 03/10: LASIX 40 MG IV . DC'S 03/11 CPOE 03/12: LASIX 20 MG SLOW IVP NOW CPOE 03/13: LASIX 80MG SLOW IVP NOW CPOE 03/14: LASIX 40 MG PO DAILY. Thank you, Lou (This form is maintained as a part of the permanent medical record) 2014 [employer], [employer]. All Rights Reserved Lou Goodman, RN, BSN [email or web address] Office: [phone] MTDD
[2018-03-14] MEDS ORDERED: Polyethylene Glycol 3350 17 GM Packet PO PRN (13:59)
[2018-03-14 14:34] LABS: Vancomycin, Trough 22.4 ug/mL
[2018-03-14] MEDS: Vancomycin HCl 750 MG in Sodium Chloride 0.9% 250 ML 250 ML IVPB SCH (16:12)
[2018-03-14] MEDS: Vancomycin HCl 500 MG in Sodium Chloride 0.9% 100 ML IVPB SCH (17:04)
[2018-03-14] MEDS: Insulin Regular 300 UNITS/3 ML VIAL SC PRN (17:05)
[2018-03-14] MEDS: Docusate 100 MG CAP PO SCH (20:29)
[2018-03-15 05:00] LABS: #Eosinphils 0.3 thou/uL (0.0-0.7); #Lymphocytes 0.7 thou/uL (1.20-3.40); #Monocytes 0.5 thou/uL (0.11-0.59); #Neutrophils 3.5 thou/uL (1.40-6.50); %Basophils 0.2 % (0.0-1.0); %Eosinophils 5.4 % (0.0-10.0); %Lymphocytes 13.6 % (21.0-51.0); %Neutrophils 70.9 % (42.0-75.0); Mean Corpuscular HGB CONC 31.4 g/dL (32.0-36.0); Mean Corpuscular Hemoglobin 25.8 pg (27.0-31.0); Mean Corpuscular Volume 82.2 fL (78.0-98.0); Platelet Count 321 thou/uL (130-400); RBC Distribution Width 14.5 % (11.5-14.5); White Blood Cell (WBC) Count 4.9 thou/uL (4.8-10.8)
[2018-03-15] MEDS: prednisoLONE 1% Ophth Susp 5 ml Bottle EA EYE SCH ×3 (05:12→18:07)
[2018-03-15 05:23] LABS: Anion Gap 16 mmol/L (10-20); BUN (Urea Nitrogen) 70 mg/dL (8.4-25.7); Calc. Creatinine Clearance 32 mL/min (70-130); Calcium 9.4 mg/dL (7.8-10.44); Carbon Dioxide 20 mmol/L (23-31); Chloride 111 mmol/L (98-107); Estimated GFR-MDRD 18; Potassium 4.7 mmol/L (3.5-5.1); Sodium 142 mmol/L (136-145)
[2018-03-15 05:27] LABS: Glucose 42 mg/dL (80-115)
[2018-03-15] MEDS: Atorvastatin Calcium 20 MG TAB PO SCH (07:57)
[2018-03-15] MEDS: Ketorolac Tromethamine 0.5% Ophth Soln 3 ml Bottle EA EYE SCH ×4 (07:57→20:02)
[2018-03-15] MEDS: Furosemide 40 MG TAB PO SCH (07:57)
[2018-03-15] MEDS: Docusate 100 MG CAP PO SCH ×2 (07:57→20:01)
[2018-03-15] MEDS: Loratadine 10 MG TAB PO SCH (07:57)
[2018-03-15] MEDS: Ferrous Sulfate 325 MG TAB PO SCH ×2 (07:57→20:01)
[2018-03-15] MEDS: Aspirin 325 mg Enteric Coated Tablet PO SCH (07:58)
[2018-03-15] MEDS: Heparin 5,000 UNITS/ML VIAL SC SCH ×3 (07:58→20:02)
[2018-03-15] MEDS: Carvedilol 6.25 MG TAB PO SCH ×2 (08:01→16:39)
[2018-03-15] MEDS: Amlodipine 10 MG TAB PO SCH (08:01)
[2018-03-15] MEDS: Insulin Glargine 60 UNITS in Pre-Filled Syringe 1 EACH SC SCH (08:59)
--- NOTE | 2018-03-15 09:15 | PDOC.FM ---
- Subjective Subjective: Pt. states he did well overnight. He denies sob, cp, or n/v. He is tolerating PO. He states that all he has been doing is urinating. - Objective MAR Reviewed: Yes Vital Signs & Weight: Vital Signs (12 hours) Temp Pulse Resp BP BP BP Pulse Ox 03/15/18 08:01 81 145/53 H 03/15/18 08:00 97.4 F L 88 20 145/63 H 94 L 03/15/18 06:49 94 L 03/15/18 04:00 97.7 F 81 20 138/65 93 L 03/15/18 00:00 97.9 F 85 20 158/82 H 98 Weight Admit Weight 130.181 kg Weight 122.924 kg I&O: 03/14/18 03/15/18 03/16/18 06:59 06:59 06:59 Intake Total 150 900 Output Total 950 500 Balance -800 400 Result Diagrams: 03/15/18 04:03 03/15/18 04:03 <Godfrey Calderon - Last Filed: 03/15/18 17:36> - Objective Vital Signs & Weight: Vital Signs (12 hours) Temp Pulse Resp BP BP BP Pulse Ox 03/15/18 16:39 135/76 03/15/18 16:00 98 F 71 18 135/76 96 03/15/18 12:00 97.8 F 71 18 133/69 93 L 03/15/18 08:01 81 145/53 H 03/15/18 08:00 97.4 F L 88 20 145/63 H 94 L Weight Admit Weight 130.181 kg Weight 122.924 kg I&O: 03/14/18 03/15/18 03/16/18 06:59 06:59 06:59 Intake Total 150 900 960 Output Total 391 863 2742 Balance -800 400 -140 Result Diagrams: 03/15/18 04:03 03/15/18 04:03 <Rimma Gonzales - Last Filed: 03/15/18 19:50> Phys Exam - Physical Examination Constitutional: NAD HEENT: moist MMs Neck: no JVD Respiratory: no wheezing Crackles at bases Cardiovascular: RRR, no significant murmur Abdomen is non tender, distended, and pitting edema to upper abdomen Musculoskeletal: edema present Neurological: moves all 4 limbs Psychiatric: A&O x 3 <Godfrey Calderon - Last Filed: 03/15/18 17:36> Dx/Plan (1) Anemia in chronic kidney disease (CKD) Code(s): N18.9 - CHRONIC KIDNEY DISEASE, UNSPECIFIED; D63.1 - ANEMIA IN CHRONIC KIDNEY DISEASE Status: Chronic Qualifiers: Chronic kidney disease stage: stage 4 (severe) Qualified Code(s): N18.4 - Chronic kidney disease, stage 4 (severe); D63.1 - Anemia in chronic kidney disease (2) Chronic wound of extremity Code(s): [id number] - Status: Chronic (3) Diabetes Code(s): E11.9 - TYPE 2 DIABETES MELLITUS WITHOUT COMPLICATIONS Status: Chronic Qualifiers: Diabetes mellitus type: type 2 Diabetes mellitus complication status: with kidney complications Diabetes mellitus complication detail: with chronic kidney disease Chronic kidney disease stage: stage 4 (severe) (4) HTN (hypertension) Code(s): I10 - ESSENTIAL (PRIMARY) HYPERTENSION Status: Chronic (5) Self-care deficit for bathing and hygiene Code(s): R46.0 - VERY LOW LEVEL OF PERSONAL HYGIENE Status: Chronic (6) Self-care deficit for medication management Code(s): [id number] - Status: Chronic - Plan Plan: This is a 67 yo male with PMH of DM 2, HTN, anemia of chronic disease, CKD stage IV AMS 2/2 ing vs. Infection -We will continue to maximize stimulation during the day and minimize at night, inlcuding noise, TV, opening/closing blinds, and attempting to reorient during times of AMS. Pt. is currently on Vanc for leg wound. Urine Cx from 03/10 grew no bacteria. UA from 03/13 shows no bacteria. CKD IV -Nephrology is on board. Kidney function continues to worsen per labs. We will continue BP meds for control and assess how yesterday's dose of lasix has changes his clinical picture. Dyspnea likely 2/2 volume overload vs. anemia vs. atelectasis -Pt. had sats of 97 on RA upon admission. Pt. has negative water balance at this point. Hgb is down from 10.7 to 9.0. I encouraged him to take deep breaths and cough throughout the day. We are continuing daily weights but no longer monitoring strict I&Os. We will continue duonebs PRN and consider scheduling based on clinical exam. Pt. is severely fluid overloaded. We will consider further diuresing. Anemia in CKD -Stable at 9.0 we will appreciate nephro recs and continue ferrous sulfate and procrit Chronic lower extremity wounds likely secondary to venous/arterial insufficiency -Wound has improved since admission. Wound care is on board and will continue routine care w/ medihoney per gen surg recs. Day 5 of IV vanc. with plan for 7 day course. Vascular and general surgery consulted. We will continue to appreciate their recs. CTA of B/L LE shows no significant stenosis. Uncontrolled DM 2 -Improving BG below 200. We will continue current regiment and adjust as needed. Continue accuchecks HTN -Improved control on 10 norvasc and 12.5 BID as well as diuresis w/lasix Unable to care for self -Per CM pt. lives alone and is unable to care for himself or drive. Plan is to DC to SNF and then transition to live with daughter. Awaiting placement. Hyperkalemia -Resolved for 5 days. We will continue monitoring. Pt is stable. We are transferring him to the floor. Hypertensive urgency -Resolved Code: full Prophylaxis: Heparin Family: none at bedside Disposition: SNF, pending approval <Godfrey Calderon - Last Filed: 03/15/18 17:36> Attending Addendum - Attending Addendum Date/Time: 03/15/18 1148 I personally evaluated the patient and discussed the management with Dr. Calderon I agree with the History, Examination, Assessment and Plan documented above with any addition or exceptions noted below. The patient remains on IV vancomycin. Continuing lasix and monitoring for improvement in edema to the abdomen. Monitoring renal function and following Dr. Arreola's recommendations. <Rimma Gonzales - Last Filed: 03/15/18 19:50>
--- NOTE | 2018-03-15 09:43 | PRG ---
DATE OF SERVICE: 03/15/2018 SERVICE: Renal Medicine. SUBJCETIVE: Mr. Suero is a 67-year-old black male who was seen for his acute kidney injury on top of his chronic renal failure. He has underlying chronic renal failure from diabetic nephropathy. He also came in with infected bilateral leg wounds. A CT angio has been done and it showed no signific ant stenosis. He most likely has chronic venous stasis. He has been started on Lasix 40 mg tab once a day due to the leg edema. No complaints today, he is feeling better. OBJECTIVE: VITAL SIGNS: Blood pressure is noted at 145/53, heart rate 81, respiratory rate 20, temperature 97.4 , pulse ox 94%. GENERAL: Awake, alert, sitting comfortable, obese, not in distress. SKIN: Adequate turgor. HEENT: Slightly pale conjunctivae, anicteric sclerae. NECK: No neck mass, no carotid bruits, no JVD. CHEST: No deformities. LUNGS: Clear breath sounds. No wheezing, no crackles. HEART: Normal sinus rhythm. No murmur, no gallops or rubs. ABDOMEN: Globular, soft, nontender, no masses. EXTREMITIES: Positive for edema. Positive for wound dressing. MEDICATIONS: Of 03/15/2018 was reviewed. LABORATORY DATA: Of 03/15/2018, white count 4.9, hemoglobin 9. Sodium 142, potassium is 4.7, chlori de 111, carbon dioxide is 20, BUN 70, creatinine 4, GFR is 18 mL per minute, calcium 9.4. ASSESSMENT AND PLAN: 1. Chronic renal failure from diabetic nephropathy/acute kidney injury - stable renal function. Con tinue Lasix 40 mg tab once a day. No indication for any dialytic intervention. We will consider ini tiating dialysis once the GFR is less than 15 to less than 10 mL per minute. Continue supportive car e. 2. Anemia, continuing weekly Epogen. 3. Chronic venous stasis, supportive care on diuretics. Possible placement for [facility] facility. Agree with current management.
[2018-03-15] MEDS: Vancomycin HCl 500 MG in Sodium Chloride 0.9% 100 ML IVPB SCH (16:38)
[2018-03-15] MEDS: Insulin Regular 300 UNITS/3 ML VIAL SC PRN ×2 (18:10→21:04)
[2018-03-16] MEDS: prednisoLONE 1% Ophth Susp 5 ml Bottle EA EYE SCH ×5 (00:23→23:58)
[2018-03-16] MEDS: Insulin Regular 300 UNITS/3 ML VIAL SC PRN (05:19)
--- NOTE | 2018-03-16 05:31 | PDOC.FM ---
- Subjective Subjective: Pt. was seen sitting up on the edge of his bed in no acute distress. He reports waiting for breakfast. I told him the time and he thought it was much later. He also complains of nasal congestion. Denies dyspnea, chest pain, leg pain, or abdominal pain. - Objective MAR Reviewed: Yes Vital Signs & Weight: Vital Signs (12 hours) Temp Pulse Resp BP Pulse Ox 03/15/18 20:00 98.1 F 75 20 127/70 95 Weight Admit Weight 130.181 kg Weight 122.924 kg I&O: 03/14/18 03/15/18 03/16/18 06:59 06:59 06:59 Intake Total 160 193 0662 Output Total 537 929 0550 Balance -800 400 -140 Result Diagrams: 03/15/18 04:03 03/15/18 04:03 <Godfrey Calderon - Last Filed: 03/16/18 05:38> - Objective Vital Signs & Weight: Vital Signs (12 hours) Temp Pulse Pulse Pulse Resp BP BP 03/16/18 13:03 90 89 162/69 H 03/16/18 08:00 03/16/18 07:51 89 162/69 H 03/16/18 07:41 97.7 F 90 22 H BP Pulse Ox Pulse Ox Pulse Ox 03/16/18 13:03 92 L 92 L 03/16/18 08:00 92 L 03/16/18 07:51 03/16/18 07:41 162/69 H 92 L Weight Admit Weight 130.181 kg Weight 122.924 kg I&O: 03/15/18 03/16/18 03/17/18 06:59 06:59 06:59 Intake Total 900 1560 Output Total 500 1700 Balance 400 -140 Result Diagrams: 03/16/18 05:28 03/16/18 05:28 <Rimma Gonzales - Last Filed: 03/16/18 17:05> Phys Exam - Physical Examination Constitutional: NAD HEENT: moist MMs Neck: no JVD (sitting up) Respiratory: no wheezing, clear to auscultation bilateral No crackles at bases this morning Cardiovascular: RRR, no significant murmur Gastrointestinal: positive bowel sounds Abdomen is distended and has improving pitting edema. Musculoskeletal: edema present (2+ in lower extremity) Neurological: moves all 4 limbs Deviation from normal: left leg wound uncovered and appears improved from before. <Godfrey Calderon - Last Filed: 03/16/18 05:38> Dx/Plan (1) Anemia in chronic kidney disease (CKD) Code(s): N18.9 - CHRONIC KIDNEY DISEASE, UNSPECIFIED; D63.1 - ANEMIA IN CHRONIC KIDNEY DISEASE Status: Chronic Qualifiers: Chronic kidney disease stage: stage 4 (severe) Qualified Code(s): N18.4 - Chronic kidney disease, stage 4 (severe); D63.1 - Anemia in chronic kidney disease (2) Chronic wound of extremity Code(s): [id number] - Status: Chronic (3) Diabetes Code(s): E11.9 - TYPE 2 DIABETES MELLITUS WITHOUT COMPLICATIONS Status: Chronic Qualifiers: Diabetes mellitus type: type 2 Diabetes mellitus complication status: with kidney complications Diabetes mellitus complication detail: with chronic kidney disease Chronic kidney disease stage: stage 4 (severe) (4) HTN (hypertension) Code(s): I10 - ESSENTIAL (PRIMARY) HYPERTENSION Status: Chronic (5) Self-care deficit for bathing and hygiene Code(s): R46.0 - VERY LOW LEVEL OF PERSONAL HYGIENE Status: Chronic (6) Self-care deficit for medication management Code(s): [id number] - Status: Chronic - Plan Plan: This is a 67 yo male with PMH of DM 2, HTN, anemia of chronic disease, CKD stage IV AMS 2/ing vs. Infection -We will continue to maximize stimulation during the day and minimize at night, inlcuding noise, TV, opening/closing blinds, and attempting to reorient during times of AMS. Pt. is currently on Vanc for leg wound. Urine Cx from 03/10 grew no bacteria. UA from 03/13 shows no bacteria. Pt. has improved cognition. Family seen in room yesterday during rounds and will help reorient pt. CKD IV -Nephrology is on board. Kidney function continues to worsen per labs. We will continue BP meds for control and assess how yesterday's dose of lasix has changes his clinical picture. We are holding off on dialysis until GFR is <15. Dyspnea likely 2/2 volume overload vs. anemia vs. atelectasis -Pt. had sats of 97 on RA upon admission. Pt. has negative water balance at this point. Hgb is down from 10.7 to 9.0. I encouraged him to take deep breaths and cough throughout the day. We are continuing daily weights but no longer monitoring strict I&Os. We will continue duonebs PRN and consider scheduling based on clinical exam. Pt. is severely fluid overloaded. Anemia in CKD -Stable at 9.0 we will appreciate nephro recs and continue ferrous sulfate and procrit Chronic lower extremity wounds likely secondary to venous/arterial insufficiency -Wound has improved since admission. Wound care is on board and will continue routine care w/ medihoney per gen surg recs. Day 5 of IV vanc. with plan for 7 day course. Vascular and general surgery consulted. We will continue to appreciate their recs. CTA of B/L LE shows no significant stenosis. Uncontrolled DM 2 -Improving BG below 200. We will continue current regiment and adjust as needed. Continue accuchecks HTN -Improved control on 10 norvasc and 12.5 BID as well as diuresis w/lasix Unable to care for self -Per CM pt. lives alone and is unable to care for himself or drive. Plan is to DC to SNF and then transition to live with daughter. Awaiting placement. Hyperkalemia -Resolved for 5 days. We will continue monitoring. Pt is stable. We are transferring him to the floor. Hypertensive urgency -Resolved Rhinitis likely 2/2 allergies -Flonase and monitor Code: full Prophylaxis: Heparin Family: none at bedside Disposition: SNF, pending approval at [facility] in [facility] <Godfrey Calderon - Last Filed: 03/16/18 05:38> Attending Addendum - Attending Addendum Date/Time: 03/16/18 7954 I personally evaluated the patient and discussed the management with Dr. Calderon. I agree with the History, Examination, Assessment and Plan documented above with any addition or exceptions noted below. Pt remains on oral furosemide. He continues to have edema. Dr. Arreola is monitoring renal function but we know adjustments in lasix can worsen renal function. On IV vancomycin. Case mgmt is working on placement. <Rimma Gonzales - Last Filed: 03/16/18 17:05>
[2018-03-16 05:51] LABS: #Eosinphils 0.4 thou/uL (0.0-0.7); #Lymphocytes 0.8 thou/uL (1.20-3.40); #Monocytes 0.6 thou/uL (0.11-0.59); #Neutrophils 4.7 thou/uL (1.40-6.50); %Basophils 0.5 % (0.0-1.0); %Eosinophils 6.4 % (0.0-10.0); %Lymphocytes 12.1 % (21.0-51.0); %Monocytes 8.4 % (0.0-10.0); %Neutrophils 72.6 % (42.0-75.0); Hemoglobin 9.4 g/dL (14.0-18.0); Mean Corpuscular HGB CONC 30.8 g/dL (32.0-36.0); Mean Corpuscular Hemoglobin 25.3 pg (27.0-31.0); Mean Platelet Volume 8.1 fL (7.4-10.4); Platelet Count 392 thou/uL (130-400); RBC Distribution Width 14.7 % (11.5-14.5); Red Blood Cell (RBC) Count 3.73 mill/uL (4.70-6.10); White Blood Cell (WBC) Count 6.5 thou/uL (4.8-10.8)
[2018-03-16 06:16] LABS: Anion Gap 16 mmol/L (10-20); BUN (Urea Nitrogen) 80 mg/dL (8.4-25.7); Calc. Creatinine Clearance 33 mL/min (70-130); Calcium 9.6 mg/dL (7.8-10.44); Carbon Dioxide 20 mmol/L (23-31); Chloride 110 mmol/L (98-107); Estimated GFR-MDRD 19; Glucose 126 mg/dL (80-115); Potassium 4.9 mmol/L (3.5-5.1); Sodium 141 mmol/L (136-145)
[2018-03-16] MEDS: Amlodipine 10 MG TAB PO SCH (07:51)
[2018-03-16] MEDS: Atorvastatin Calcium 20 MG TAB PO SCH (07:51)
[2018-03-16] MEDS: Carvedilol 6.25 MG TAB PO SCH ×2 (07:51→17:09)
[2018-03-16] MEDS: Ferrous Sulfate 325 MG TAB PO SCH ×2 (07:51→21:04)
[2018-03-16] MEDS: Heparin 5,000 UNITS/ML VIAL SC SCH ×3 (07:52→21:04)
[2018-03-16] MEDS: Ketorolac Tromethamine 0.5% Ophth Soln 3 ml Bottle EA EYE SCH ×4 (07:52→21:04)
[2018-03-16] MEDS: Aspirin 325 mg Enteric Coated Tablet PO SCH (07:52)
[2018-03-16] MEDS: Fluticasone Propionate Nasal Spray 16 gm Bottle NASAL SCH (07:52)
[2018-03-16] MEDS: Insulin Glargine 60 UNITS in Pre-Filled Syringe 1 EACH SC SCH (07:52)
[2018-03-16] MEDS: Furosemide 40 MG TAB PO SCH (07:52)
[2018-03-16] MEDS: Loratadine 10 MG TAB PO SCH (07:52)
[2018-03-16] MEDS: Docusate 100 MG CAP PO SCH ×2 (07:52→21:04)
--- NOTE | 2018-03-16 09:02 | PRG ---
DATE OF SERVICE: 03/16/2018 SUBJECTIVE: Mr. Suero is a 67-year-old black male who is being followed up by the Renal Service f or his acute kidney injury on top of his chronic renal failure. Underlying chronic renal failure is from diabetic nephropathy. His renal function has been stabilizing. Continues to be on low dose diu retic of Lasix 40 mg p.o. once a day due to the chronic leg edema and volume overload. No complaints today, no worsening shortness of breath. Still with chronic leg edema. OBJECTIVE: VITAL SIGNS: Blood pressure is 162/69, heart rate 90, respiratory rate 22, pulse ox 92%, temperature 97.7. GENERAL: Awake, standing comfortable, not in distress. SKIN: Adequate turgor. HEENT: Slightly pale conjunctivae, anicteric sclerae. NECK: No neck mass, no carotid bruits. No JVD. CHEST: No deformities. LUNGS: Decreased breath sounds, no wheezing. HEART: Normal sinus rhythm. No murmur, no gallops or rubs. ABDOMEN: Globular, soft, nontender. EXTREMITIES: Positive for edema. Positive for chronic leg wounds. MEDICATIONS: 03/16/2018 - Reviewed. LABORATORY DATA: 03/16/2018 - White count 6.5, hemoglobin 9.4. Sodium 141, potassium 4.9, chloride 110, carbon dioxide 20, BUN 80, creatinine 3.82, GFR 19 mL per minute. Calcium is 9.6. ASSESSMENT AND PLAN: 1. Acute kidney injury/chronic renal failure, stabilizing renal function. Tolerating current diuret ic regimen. There is no indication for any dialytic intervention. Continue current management. As previously mentioned, we will initiate dialysis once the GFR is less than 15 mL per minute. There is no indication for any emergent dialytic intervention with this patient. 2. Anemia, continuing weekly Epogen and iron supplementation. 3. Chronic leg wound/chronic venous stasis - supportive care. CT angio of the lower extremities did not show any need for surgical intervention with the lower extremities. Overall I agree with current management. Agree with discharge at any time.
[2018-03-16] MEDS: Vancomycin HCl 500 MG in Sodium Chloride 0.9% 100 ML IVPB SCH (17:13)
[2018-03-16 17:26] LABS: Vancomycin, Trough 19.6 ug/mL
[2018-03-17 05:23] LABS: Anion Gap 14 mmol/L (10-20); BUN (Urea Nitrogen) 88 mg/dL (8.4-25.7); Calc. Creatinine Clearance 33 mL/min (70-130); Calcium 9.5 mg/dL (7.8-10.44); Carbon Dioxide 24 mmol/L (23-31); Chloride 109 mmol/L (98-107); Estimated GFR-MDRD 19; Potassium 4.6 mmol/L (3.5-5.1); Sodium 142 mmol/L (136-145)
[2018-03-17 05:31] LABS: Glucose 56 mg/dL (80-115)
[2018-03-17 05:36] LABS: #Eosinphils 0.3 thou/uL (0.0-0.7); #Lymphocytes 1.1 thou/uL (1.20-3.40); #Monocytes 0.4 thou/uL (0.11-0.59); #Neutrophils 3.3 thou/uL (1.40-6.50); %Basophils 0.5 % (0.0-1.0); %Eosinophils 6.6 % (0.0-10.0); %Lymphocytes 21.1 % (21.0-51.0); %Neutrophils 63.8 % (42.0-75.0); Hemoglobin 9.1 g/dL (14.0-18.0); Mean Corpuscular HGB CONC 30.6 g/dL (32.0-36.0); Mean Corpuscular Volume 81.5 fL (78.0-98.0); Mean Platelet Volume 7.3 fL (7.4-10.4); Platelet Count 344 thou/uL (130-400); RBC Distribution Width 14.5 % (11.5-14.5); Red Blood Cell (RBC) Count 3.62 mill/uL (4.70-6.10); White Blood Cell (WBC) Count 5.2 thou/uL (4.8-10.8)
--- NOTE | 2018-03-17 05:39 | PDOC.FM ---
- Subjective Subjective: Pt. reports he is doing well this morning. He states he is still urinating. He denies SOB, CP, abdominal pain, or leg pain. Pt. states everything is fine. - Objective MAR Reviewed: Yes Vital Signs & Weight: Vital Signs (12 hours) Temp Pulse Resp BP Pulse Ox 03/16/18 20:00 98.6 F 78 20 149/83 H 93 L Weight Admit Weight 130.181 kg Weight 122.924 kg I&O: 03/15/18 03/16/18 03/17/18 06:59 06:59 06:59 Intake Total 900 1560 1560 Output Total 500 1700 475 Balance 400 -140 1085 Result Diagrams: 03/17/18 04:49 03/17/18 04:49 <Godfrey Calderon - Last Filed: 03/17/18 08:37> - Objective Vital Signs & Weight: Vital Signs (12 hours) Temp Pulse Resp BP BP Pulse Ox 03/17/18 11:00 97.5 F L 85 20 151/85 H 92 L 03/17/18 07:55 85 157/81 H 03/17/18 07:38 97.9 F 85 18 157/81 H 96 Weight Admit Weight 130.181 kg Weight 123.06 kg I&O: 03/16/18 03/17/18 03/18/18 06:59 06:59 06:59 Intake Total 1560 2040 Output Total 1700 1225 Balance -140 815 Result Diagrams: 03/17/18 04:49 03/17/18 04:49 <Rimma Gonzales - Last Filed: 03/17/18 15:02> Phys Exam - Physical Examination Constitutional: NAD HEENT: moist MMs Neck: no JVD Pt. has crackles at lung bases, pt. is moving good air. Cardiovascular: RRR, no significant murmur Distended, with pitting edema to mid abdomen Musculoskeletal: edema present (2+ pitting edema) Neurological: moves all 4 limbs Psychiatric: A&O x 3 <Godfrey Calderon - Last Filed: 03/17/18 08:37> Dx/Plan (1) Anemia in chronic kidney disease (CKD) Code(s): N18.9 - CHRONIC KIDNEY DISEASE, UNSPECIFIED; D63.1 - ANEMIA IN CHRONIC KIDNEY DISEASE Status: Chronic Qualifiers: Chronic kidney disease stage: stage 4 (severe) Qualified Code(s): N18.4 - Chronic kidney disease, stage 4 (severe); D63.1 - Anemia in chronic kidney disease (2) Chronic wound of extremity Code(s): [id number] - Status: Chronic (3) Diabetes Code(s): E11.9 - TYPE 2 DIABETES MELLITUS WITHOUT COMPLICATIONS Status: Chronic Qualifiers: Diabetes mellitus type: type 2 Diabetes mellitus complication status: with kidney complications Diabetes mellitus complication detail: with chronic kidney disease Chronic kidney disease stage: stage 4 (severe) (4) HTN (hypertension) Code(s): I10 - ESSENTIAL (PRIMARY) HYPERTENSION Status: Chronic (5) Self-care deficit for bathing and hygiene Code(s): R46.0 - VERY LOW LEVEL OF PERSONAL HYGIENE Status: Chronic (6) Self-care deficit for medication management Code(s): [id number] - Status: Chronic - Plan Plan: This is a 67 yo male with PMH of DM 2, HTN, anemia of chronic disease, CKD stage IV AMS 2/ vs. Infection -We will continue to maximize stimulation during the day and minimize at night, inlcuding noise, TV, opening/closing blinds, and attempting to reorient during times of AMS. Urine Cx from 03/10 grew no bacteria. UA from 03/13 shows no bacteria. Pt. has improved cognition. Family seen in room yesterday during rounds and will help reorient pt. CKD IV -Nephrology is on board. Kidney function continues to worsen per labs. We will continue BP meds for control and assess how yesterday's dose of lasix has changes his clinical picture. We are holding off on dialysis until GFR is <15. Dyspnea likely 2/2 volume overload vs. anemia vs. atelectasis -Pt. had sats of 97 on RA upon admission. Pt. has negative water balance at this point. Hgb is down from 10.7 to 9.0. I encouraged him to take deep breaths and cough throughout the day. We are continuing daily weights but no longer monitoring strict I&Os. We will continue duonebs PRN and consider scheduling based on clinical exam. Pt. is severely fluid overloaded. I am increasing his diuretic to lasix 40 bid. Anemia in CKD -Stable at 9.0 we will appreciate nephro recs and continue ferrous sulfate and procrit Chronic lower extremity wounds likely secondary to venous/arterial insufficiency -Wound has improved since admission. Wound care is on board and will continue routine care w/ medihoney per gen surg recs. Pt. has had 7 day course of vanc and will not be needed outpt. Vascular and general surgery consulted. We will continue to appreciate their recs. CTA of B/L LE shows no significant stenosis. Uncontrolled DM 2 -Improving BG below 200. We will continue current regiment and adjust as needed. Continue accuchecks. Pt. has had 2 AM glucose levels less than 60. We may adjust his insulin depending on his accuchecks today. HTN -Improved control on 10 norvasc and 12.5 BID as well as diuresis w/lasix Unable to care for self -Per CM pt. lives alone and is unable to care for himself or drive. Plan is to DC to SNF and then transition to live with daughter. Awaiting placement. Hyperkalemia -Resolved for 5 days. We will continue monitoring. Pt is stable. We are transferring him to the floor. Hypertensive urgency -Resolved Rhinitis likely 2/2 allergies -Flonase and monitor Code: full Prophylaxis: Heparin Family: none at bedside Disposition: SNF, pending approval at [facility] <Godfrey Calderon - Last Filed: 03/17/18 08:37> Attending Addendum - Attending Addendum Date/Time: 03/17/18 1500 I personally evaluated the patient and discussed the management with Dr. Calderon. I agree with the History, Examination, Assessment and Plan documented above with any addition or exceptions noted below. IV antibiotics are stopping today. He is cleared for discharge. Waiting on placement. <Rimma Gonzales - Last Filed: 03/17/18 15:02>
[2018-03-17] MEDS: prednisoLONE 1% Ophth Susp 5 ml Bottle EA EYE SCH ×4 (05:50→23:32)
[2018-03-17] MEDS: Atorvastatin Calcium 20 MG TAB PO SCH (07:55)
[2018-03-17] MEDS: Amlodipine 10 MG TAB PO SCH (07:55)
[2018-03-17] MEDS: Aspirin 325 mg Enteric Coated Tablet PO SCH (07:55)
[2018-03-17] MEDS: Docusate 100 MG CAP PO SCH ×2 (07:55→20:31)
[2018-03-17] MEDS: Carvedilol 6.25 MG TAB PO SCH ×2 (07:55→17:08)
[2018-03-17] MEDS: Furosemide 40 MG TAB PO SCH ×3 (07:55→14:52)
[2018-03-17] MEDS: Loratadine 10 MG TAB PO SCH (07:55)
[2018-03-17] MEDS: Ketorolac Tromethamine 0.5% Ophth Soln 3 ml Bottle EA EYE SCH ×4 (07:56→20:31)
[2018-03-17] MEDS: Ferrous Sulfate 325 MG TAB PO SCH ×2 (07:56→20:31)
[2018-03-17] MEDS: Fluticasone Propionate Nasal Spray 16 gm Bottle NASAL SCH (07:56)
[2018-03-17] MEDS: Heparin 5,000 UNITS/ML VIAL SC SCH ×3 (07:57→20:31)
[2018-03-17] MEDS: Insulin Glargine 60 UNITS in Pre-Filled Syringe 1 EACH SC SCH (08:28)
--- NOTE | 2018-03-17 09:27 | PRG ---
DATE OF SERVICE: 03/17/2018 SUBJECTIVE: Mr. Suero is a 67-year-old black male with chronic renal failure from diabetic nephro chano with a superimposed acute kidney injury and we are continuing to monitor him. Renal function i s remaining stable. He seems to be tolerating the current low dose diuretic of Lasix 40 mg tab once a day. No new complaints today, no worsening shortness of breath or chest pain. Please note he was initially admitted for chronic lower leg infection. He has undergone CTA of the lower extremities wi thout any finding of significant stenosis of the lower blood vessels. PHYSICAL EXAMINATION: VITAL SIGNS: Blood pressure 157/81, heart rate 85, respiratory rate 18, temperature 97.9, pulse ox 9 6%. GENERAL: Awake, supine, comfortable, obese, not in distress. SKIN: Adequate turgor. HEENT: Slightly pale conjunctivae, anicteric sclerae. NECK: No neck mass, no carotid bruits, no JVD. CHEST: No deformities. LUNGS: Decreased breath sounds. HEART: Normal sinus rhythm. No murmur, no gallops, no rubs. ABDOMEN: Globular, soft, nontender. No masses. EXTREMITIES: Positive for edema. MEDICATIONS: 03/17/2018 - Reviewed. LABORATORY DATA: 03/17/2018 - White count 5.2, hemoglobin 9.1, hematocrit 29.5. Sodium 142, potassi um 4.6, chloride 109, carbon dioxide 24, BUN 88, creatinine 3.8, calcium is 9.5. ASSESSMENT AND PLAN: 1. Chronic renal failure from diabetic nephropathy, stable renal function. Creatinine is relatively unchanged at 3.8. GFR is noted at 19 mL per minute. There is no indication for any dialytic interv ention. Continue supportive care. No changes will be made with his current diuretic regimen. 2. Anemia, continuing weekly Epogen with the patient. 3. Chronic lower leg edema, on Lasix 40 mg tab once a day. I agree with current management. Okay for discharge from a renal point of view.
[2018-03-17] MEDS: Insulin Glargine 45 UNITS in Pre-Filled Syringe 1 EACH SC SCH (10:21)
[2018-03-18 04:44] LABS: #Basophils 0.1 thou/uL (0.0-0.2); #Eosinphils 0.4 thou/uL (0.0-0.7); #Monocytes 0.4 thou/uL (0.11-0.59); #Neutrophils 3.5 thou/uL (1.40-6.50); %Eosinophils 7.2 % (0.0-10.0); %Lymphocytes 18.6 % (21.0-51.0); %Monocytes 7.7 % (0.0-10.0); %Neutrophils 65.5 % (42.0-75.0); Hemoglobin 9.1 g/dL (14.0-18.0); Mean Corpuscular HGB CONC 30.4 g/dL (32.0-36.0); Mean Corpuscular Hemoglobin 25.2 pg (27.0-31.0); Mean Corpuscular Volume 82.9 fL (78.0-98.0); Platelet Count 354 thou/uL (130-400); RBC Distribution Width 14.8 % (11.5-14.5); White Blood Cell (WBC) Count 5.3 thou/uL (4.8-10.8)
[2018-03-18] MEDS: prednisoLONE 1% Ophth Susp 5 ml Bottle EA EYE SCH ×2 (06:11→12:17)
[2018-03-18 06:22] LABS: Chloride 111 mmol/L (98-107); Potassium 5.1 mmol/L (3.5-5.1); Sodium 143 mmol/L (136-145)
[2018-03-18 06:23] LABS: Calcium 9.9 mg/dL (7.8-10.44); Glucose 67 mg/dL (80-115)
[2018-03-18 06:25] LABS: Anion Gap 15 mmol/L (10-20); Carbon Dioxide 22 mmol/L (23-31)
[2018-03-18 06:27] LABS: Calc. Creatinine Clearance 34 mL/min (70-130); Estimated GFR-MDRD 20
[2018-03-18 06:28] LABS: BUN (Urea Nitrogen) 88 mg/dL (8.4-25.7)
--- NOTE | 2018-03-18 06:29 | PDOC.FM ---
- Subjective Subjective: Pt. reports he is doing well. He denies SOB, CP, abdominal pain, or any other complaints. SW reported yesterday afternoon that pt. had been accepted to a facility in [facility]. - Objective MAR Reviewed: Yes Vital Signs & Weight: Vital Signs (12 hours) Temp Pulse Resp BP Pulse Ox 03/17/18 20:00 95 03/17/18 19:29 97.6 F 71 22 H 132/73 95 Weight Admit Weight 130.181 kg Weight 123.179 kg I&O: 03/16/18 03/17/18 03/18/18 06:59 06:59 06:59 Intake Total 1560 2040 1200 Output Total 1700 1225 1750 Balance -140 815 -550 Result Diagrams: 03/18/18 04:12 03/18/18 05:41 <Godfrey Calderon - Last Filed: 03/18/18 09:07> - Objective Vital Signs & Weight: Vital Signs (12 hours) Temp Pulse Resp BP BP Pulse Ox 03/18/18 07:58 98.5 F 90 16 157/90 H 94 L 03/18/18 07:49 71 157/81 H Weight Admit Weight 130.181 kg Weight 123.179 kg I&O: 03/17/18 03/18/18 03/19/18 06:59 06:59 06:59 Intake Total 2040 1200 Output Total 1225 1750 Balance 815 -550 Result Diagrams: 03/18/18 04:12 03/18/18 05:41 <Rimma Gonzales - Last Filed: 03/18/18 13:17> Phys Exam - Physical Examination Constitutional: NAD HEENT: moist MMs Neck: no JVD (Sitting up) Respiratory: no wheezing Mild crackles at bases Cardiovascular: RRR, no significant murmur Abdomen distended with pitting edema to mid abdomen Musculoskeletal: edema present (2+ in LE bilaterally) Neurological: moves all 4 limbs Psychiatric: A&O x 3 <Godfrey Calderon - Last Filed: 03/18/18 09:07> Dx/Plan (1) Anemia in chronic kidney disease (CKD) Code(s): N18.9 - CHRONIC KIDNEY DISEASE, UNSPECIFIED; D63.1 - ANEMIA IN CHRONIC KIDNEY DISEASE Status: Chronic Qualifiers: Chronic kidney disease stage: stage 4 (severe) Qualified Code(s): N18.4 - Chronic kidney disease, stage 4 (severe); D63.1 - Anemia in chronic kidney disease (2) Chronic wound of extremity Code(s): [id number] - Status: Chronic (3) Diabetes Code(s): E11.9 - TYPE 2 DIABETES MELLITUS WITHOUT COMPLICATIONS Status: Chronic Qualifiers: Diabetes mellitus type: type 2 Diabetes mellitus complication status: with kidney complications Diabetes mellitus complication detail: with chronic kidney disease Chronic kidney disease stage: stage 4 (severe) (4) HTN (hypertension) Code(s): I10 - ESSENTIAL (PRIMARY) HYPERTENSION Status: Chronic (5) Self-care deficit for bathing and hygiene Code(s): R46.0 - VERY LOW LEVEL OF PERSONAL HYGIENE Status: Chronic (6) Self-care deficit for medication management Code(s): [id number] - Status: Chronic - Plan Plan: This is a 67 yo male with PMH of DM 2, HTN, anemia of chronic disease, CKD stage IV AMS 2/ vs. Infection -We will continue to maximize stimulation during the day and minimize at night, inlcuding noise, TV, opening/closing blinds, and attempting to reorient during times of AMS. Urine Cx from 03/10 grew no bacteria. UA from 03/13 shows no bacteria. Pt. has improved cognition. Family seen in room yesterday during rounds and will help reorient pt. CKD IV -Nephrology is on board. Kidney function continues to worsen per labs. We will continue BP meds for control and assess how yesterday's dose of lasix has changes his clinical picture. We are holding off on dialysis until GFR is <15. Dyspnea likely 2/2 volume overload due to CHF -Pt. had sats of 97 on RA upon admission. Pt. has negative water balance at this point. Hgb is down from 10.7 to 9.0. I encouraged him to take deep breaths and cough throughout the day. We are continuing daily weights but no longer monitoring strict I&Os. We will continue duonebs PRN and consider scheduling based on clinical exam. Pt. is severely fluid overloaded. I am increasing his diuretic to lasix 40 bid. Pt. has improved edema on his back, now to lower back. Anemia in CKD -Stable at 9.0 we will appreciate nephro recs and continue ferrous sulfate and procrit Chronic lower extremity wounds likely secondary to venous/arterial insufficiency -Wound has improved since admission. Wound care is on board and will continue routine care w/ medihoney per gen surg recs. Pt. has had 7 day course of vanc and will not be needed outpt. Vascular and general surgery consulted. We will continue to appreciate their recs. CTA of B/L LE shows no significant stenosis. Uncontrolled DM 2 -Improving BG below 200. We will continue current regiment and adjust as needed. Continue accuchecks. Pt. has had 2 AM glucose levels less than 60. We may adjust his insulin depending on his accuchecks today. HTN -Improved control on 10 norvasc and 12.5 BID as well as diuresis w/lasix Unable to care for self -Per CM pt. lives alone and is unable to care for himself or drive. Plan is to DC to SNF and then transition to live with daughter. Awaiting placement. Hyperkalemia -Resolved for 5 days. We will continue monitoring. Pt is stable. We are transferring him to the floor. Hypertensive urgency -Resolved Rhinitis likely 2/2 allergies -Flonase and monitor Code: full Prophylaxis: Heparin Family: none at bedside Disposition: SNF, pending approval at [facility] <Godfrey Calderon - Last Filed: 03/18/18 09:07> Attending Addendum - Attending Addendum Date/Time: 03/18/18 4322 I personally evaluated the patient and discussed the management with Dr. Calderon. I agree with the History, Examination, Assessment and Plan documented above with any addition or exceptions noted below. Pt's pitting edema to the chest is improved with adjustments to lasix. He remains stable. He has been accepted to SNF. Plan to d/c today. <Rimma Gonzales - Last Filed: 03/18/18 13:17>
[2018-03-18] MEDS: Fluticasone Propionate Nasal Spray 16 gm Bottle NASAL SCH (07:48)
[2018-03-18] MEDS: Ketorolac Tromethamine 0.5% Ophth Soln 3 ml Bottle EA EYE SCH ×2 (07:48→12:17)
[2018-03-18] MEDS: Carvedilol 6.25 MG TAB PO SCH (07:49)
[2018-03-18] MEDS: Docusate 100 MG CAP PO SCH (07:49)
[2018-03-18] MEDS: Atorvastatin Calcium 20 MG TAB PO SCH (07:49)
[2018-03-18] MEDS: Aspirin 325 mg Enteric Coated Tablet PO SCH (07:49)
[2018-03-18] MEDS: Amlodipine 10 MG TAB PO SCH (07:49)
[2018-03-18] MEDS: Furosemide 40 MG TAB PO SCH ×2 (07:49→14:07)
[2018-03-18] MEDS: Ferrous Sulfate 325 MG TAB PO SCH (07:49)
[2018-03-18] MEDS: Loratadine 10 MG TAB PO SCH (07:49)
[2018-03-18] MEDS: Heparin 5,000 UNITS/ML VIAL SC SCH ×2 (07:50→14:07)
[2018-03-18] MEDS: Epoetin (ESRD) 20,000 UNITS/ML SC SCH (09:56)
[2018-03-18] MEDS: Insulin Glargine 45 UNITS in Pre-Filled Syringe 1 EACH SC SCH (09:56)
--- NOTE | 2018-03-18 13:59 | PQF ---
CLINICAL DOCUMENTATION IMPROVEMENT CLARIFICATION FORM: ICD-10 Updated PLEASE DO AN ADDENDUM TO THE PROGRESS NOTE WITH ANY DOCUMENTATION UPDATES OR ADDITIONS AND CARRY THROUGH TO DC SUMMARY. THANK YOU. DATE: 03/18/18 ATTN: Dr. Calderon/ Attending Dr. Gonzales Please exercise your independent, professional judgment in responding to the clarification form. Clinical indicators are provided on the bottom of this form for your review Please check appropriate box(s): HEART FAILURE: A. TYPE: [ ] Systolic / HFrEF [x ] Diastolic / HFpEF EF of 50-55% per echo done in last month [ ] Combined Systolic / Diastolic [ ] Other diagnosis [ ] Unable to determine For continuity of documentation, please document condition throughout progress notes and discharge summary. Thank You. CLINICAL INDICATORS - SIGNS / SYMPTOMS / LABS ECHO 03/09: EF IS VISUALLY ESTIMATED AT 50-55% RENAL PN 03/13: PT MOST LIKELY HAS A DIASTOLIC DYSFUNCTION. LAST EF WAS WITHIN NORMAL, BUT CHEST X-RAY SHOWED INCREASED LUNG MARKINGS SEVERAL DAYS AGO, LASIX 80 MG X 1 DOSE WILL BE GIVEN PN 03/14: ATTENDING ADDENDUM: PT WITH PITTING EDEMA TO ABDOMEN. PN 03/16: DYSPNEA LIKELY 2/2 VOLUME OVERLOAD DUE TO CHF. PHYSICIAN QUERY ANSWERED 03/18: LIKELY CHF WITH ACUTE EXACERBATION , RESOLVING. POA-Y RISKS: H&P: HX DM, HTN, CKD. LE WOUNDS. HYPERTENSIVE URGENCY; DYSPNEA. TREATMENT: ORDER 03/09: IV LASIX 40 MG NOW CPOE 03/10: IV LASIX 40 MG 0600, 1400 CPOE 03/14: LASIX 40 MG PO DAILY. DC'D 03/17 CPOE 03/17: LASIX 40 MG PO 0900, 1400 Thank you, Lou (This form is maintained as a part of the permanent medical record) 2014 [employer]. All Rights Reserved Lou Goodman RN, BSN [email or web address] Office: [phone] [facility]
[2018-03-18 14:05] VITALS: BP 150/87; TEMP 98.6
--- NOTE | 2018-03-19 18:36 | DIS-2 ---
DATE OF ADMISSION: 03/08/2018 DATE OF DISCHARGE: 03/18/2018 RESIDENT: Godfrey Calderon DO ADMITTING ATTENDING: Josh Mcneil MD DISCHARGE ATTENDING: Rimma Gonzales MD CONSULTATION: Nephrology, Dr. Zana Arreola. PROCEDURES: 1. Echocardiogram showing EF estimated at 50%-55%. 2. CTA aortogram, bilateral runoff shows scattered atherosclerotic vascular disease with no signific ant stenosis, diffuse subcutaneous edema involving the lower extremities, single patent bilateral kareen al arteries, eventration/elevation of right hemidiaphragm with large hiatal hernia, atelectasis at ea ch lung base, colonic diverticulosis, cardiomegaly. 3. Bilateral renal ultrasound showing no hydronephrosis. 4. AP chest x-ray showing pulmonary vascular congestion. PRIMARY DIAGNOSES: Congestive heart failure exacerbation, bilateral lower leg cellulitis. SECONDARY DIAGNOSES: Hyperkalemia, chronic kidney disease, protein-calorie malnutrition, diabetes me llitus. DISCHARGE MEDICATIONS: 1. Amlodipine 10 mg p.o. daily. 2. Aspirin 325 mg p.o. daily. 3. Atenolol 50 mg p.o. b.i.d. 4. Dulcolax 10 mg p.o. daily. 5. Carvedilol 12.5 mg p.o. b.i.d. 6. Colace 100 mg p.o. b.i.d. 7. Epoetin 7500 units every week. 8. Ferrous sulfate 325 mg p.o. daily. 9. Flonase 1 spray per nostril daily. 10. Furosemide 40 mg b.i.d. 11. Hydrochlorothiazide 25 mg p.o. daily. 12. Novolin 70/30, 60 units q.a.m. and 20 units q.p.m. 13. Ketorolac tromethamine 1 drop per eye. 14. Loratadine 10 mg p.o. daily. 15. Losartan 100 mg p.o. daily. 16. MiraLax 1 packet p.o. daily p.r.n. constipation. 17. Prednisolone eyedrops 1 drop OP q.i.d. 18. Simvastatin 40 mg p.o. at bedtime. DISCONTINUED MEDICATIONS: None. HISTORY OF PRESENT ILLNESS AND HOSPITAL COURSE: This is a 67-year-old male who came from home, who h ad shortness of breath on exertion x1 month, as well as a manifestation of bilateral chronic lower le g wounds. The patient's wounds were debrided and cleaned. The patient was placed on oxygen and give n DuoNeb during his initial hospital stay. The patient's breathing improved. The patient was also f luid overloaded due to diastolic heart failure and was diuresed with 40 p.o. Lasix daily, which was c hanged to 40 b.i.d. p.o. Lasix. The patient's fluid status slowly improved throughout his stay as di d his lower leg wounds. The patient was treated with vancomycin for 7 days while he was in the [facility] for his cellulitis and was discontinued prior to his discharge. The patient was discharged to a nursing facility in [place]. DISPOSITION: Stable. DISCHARGE INSTRUCTIONS: 1. Location: prison in [place]. 2. Diet: Heart healthy and diabetic. 3. Activity: As tolerated. 4. Follow up with primary care physician in 1-2 weeks.
== END 2018-03-18 14:12 | DRG 291 ==
LOC: ERS 17:33 → 2NO 18:00 → T4-A 03-14 13:55
PROVIDERS: ADMIT Emergency Medicine; ATTEND Emergency Medicine
DX: I13.0 Hypertensive heart and chronic kidney disease with heart failure and stage 1 through stage 4 chronic kidney disease, or unspecified chronic kidney disease (principal); I50.33 Acute on chronic diastolic (congestive) heart failure; N18.4 Chronic kidney disease, stage 4 (severe); L03.116 Cellulitis of left lower limb; L03.115 Cellulitis of right lower limb; N17.9 Acute kidney failure, unspecified; E46 Unspecified protein-calorie malnutrition; Z68.41 Body mass index [BMI] 40.0-44.9, adult; I87.2 Venous insufficiency (chronic) (peripheral); E11.22 Type 2 diabetes mellitus with diabetic chronic kidney disease; E11.65 Type 2 diabetes mellitus with hyperglycemia; D64.9 Anemia, unspecified; I73.9 Peripheral vascular disease, unspecified; E87.5 Hyperkalemia; H40.9 Unspecified glaucoma; R80.9 Proteinuria, unspecified; R46.0 Very low level of personal hygiene
CPT/HCPCS: 36415; 36416; 71045; 75635; 76770; 80048; 80202; 81001; 81003; 81015; 82570; 83036; 83735; 83880; 84156; 85025; 87086; 90471; 90670; 93005; 93010; 93306; 94640; 94799; 96374; A4216; G0009; G8978-GP-CL; G8979-GP-CJ; G8987-GO-CK; G8988-GO-CJ; J0131; J0360; J1644; J1650; J1815; J1940; J3370; J7050; J7620; P9047; Q4081

== ENCOUNTER 2018-03-19 17:18 | Observation (INO) | payer MEDICARE ==
--- NOTE | 2018-03-19 19:33 | PDOC.FPRHP ---
- History of Present Illness Chief Complaint: Hypoglycemia History of Present Illness: Mr. Suero presents to the ED this evening from his SNF in [place] for feeling poorly with a blood glucose of 20. He reports that he has been taking his medication as instructed but had not eaten at the correct time. He received his insulin dose and soon after began feeling unwell. Currently he feels better and denies any KARLY, Fever/chills, headache, weakness, chest pain or shortness of breath. ED Course: accucheck, D50 - Allergies/Adverse Reactions Allergies Allergy/AdvReac Type Severity Reaction Status Date / Time No Known Drug Allergies Allergy Verified 03/19/18 22:35 - Home Medications Medication Instructions Recorded Confirmed Type Atenolol [Tenormin] 50 mg PO BID 03/08/18 03/19/18 History Hydrochlorothiazide 25 mg PO DAILY 03/08/18 03/19/18 History Insulin NPH Hum/Reg Insulin HM 20 unit SQ QPM 03/08/18 03/19/18 History [Novolin 70-30 100 Unit/ml Vial] Insulin NPH Hum/Reg Insulin HM 60 units SQ QAM 03/08/18 03/19/18 History [Novolin 70-30 100 Unit/ml Vial] Prednisolone Acetate/Pf 1 drop OP QID 03/08/18 03/19/18 History [Prednisolone Acet 1% Eye Drop] Simvastatin 40 mg PO HS 03/08/18 03/19/18 History Ketorolac Tromethamine [Ketorolac 1 drop EA EYE QID 03/10/18 03/19/18 History Tromethamine 0.5% Ophth Soln] Amlodipine [Norvasc] 10 mg PO DAILY tab 03/16/18 03/19/18 Rx Carvedilol [Coreg] 12.5 mg PO BID-WM tab 03/16/18 03/19/18 Rx Docusate [Colace] 100 mg PO BID cap 03/16/18 03/19/18 Rx Fluticasone Propionate [Flonase 1 spray NASAL DAILY #1 bot 03/16/18 03/19/18 Rx Nasal [place]] Furosemide [Lasix] 40 mg PO DAILY-AC tab 03/16/18 03/19/18 Rx Ferrous Sulfate [Feosol] 325 mg PO DAILY #30 03/18/18 03/19/18 Rx Ascorbic Acid [Vitamin C] 500 mg PO BID 03/19/18 03/19/18 History Aspirin [Aspirin Chewable] 81 mg PO DAILY 03/19/18 03/19/18 History Bisacodyl [Dulcolax] 5 mg PO PRN PRN 03/19/18 03/19/18 History Losartan [Cozaar] 100 mg PO DAILY 03/19/18 03/19/18 History Zinc Sulfate 220 mg PO DAILY 03/19/18 03/19/18 History - History PMHx:DMII, CKDIV w/ anemia, CHF, HTN PSHx: L eye surgery FHx:none Social: difficulty with caring for himself, currently at [facility] - Review of Systems General: denies: fever/chills, weight/appetite/sleep changes Eyes: denies: eye pain, vision changes ENT: denies: nasal congestion, rhinorrhea Respiratory: denies: cough, shortness of breath Cardiovascular: reports: edema. denies: chest pain Gastrointestinal: denies: nausea, vomiting, diarrhea Skin: reports: lesions ( LLE wounds receiving care at SNF). denies: rashes Musculoskeletal: denies: pain, tenderness Neurological: denies: numbness, syncope Psychological: denies: anxiety, depression - Vital signs BP: [132/67] HR: [48] RR: [27] Tmax: [97.6] Pox: [97]% on [3L NC] Wt: [124.3kg ] - Physical Exam Constitutional: NAD, well developed HEENT: normocephalic and atraumatic, grossly normal hearing Neck: supple, trachea midline Chest: no-tender to palpation Heart: RRR, normal S1/S2, other (LE pitting edema extending proximal to knee,) Lungs: CTAB, no respiratory distress, good air movement Abdomen: soft, non-tender Musculoskeletal: normal structure, normal tone Skin: good turgor, other (lower leg wounds with dressing c/d/i, no surrounding erythema) Heme/Lymphatic: no unusual bruising or bleeding, no purpura Psychiatric: normal mood and affect FMR H&P: Results - Labs Result Diagrams: 03/20/18 03:55 03/20/18 03:55 FMR H&P: A/P - Problem List (1) Hypoglycemia Current Visit: Yes Status: Acute Code(s): E16.2 - HYPOGLYCEMIA, UNSPECIFIED (2) Anemia in chronic kidney disease (CKD) Current Visit: No Status: Chronic Code(s): N18.9 - CHRONIC KIDNEY DISEASE, UNSPECIFIED; D63.1 - ANEMIA IN CHRONIC KIDNEY DISEASE Qualifiers: Chronic kidney disease stage: stage 4 (severe) Qualified Code(s): N18.4 - Chronic kidney disease, stage 4 (severe); D63.1 - Anemia in chronic kidney disease (3) Chronic wound of extremity Current Visit: No Status: Chronic Code(s): [id number] - (4) Diabetes Current Visit: No Status: Chronic Code(s): E11.9 - TYPE 2 DIABETES MELLITUS WITHOUT COMPLICATIONS Qualifiers: Diabetes mellitus type: type 2 Diabetes mellitus complication status: with kidney complications Diabetes mellitus complication detail: with chronic kidney disease Chronic kidney disease stage: stage 4 (severe) - Plan 1. Hypoglycemia, resolved - accuchecks q4hr - encouraged PO intake - hypoglycemia protocol 2. CKD with anemia - CBC, CMP in AM - avoid IVF considering LE edema and CHF hx 3. Chronic wound of LE - Wound care at SNF - consider wound care consult if made inpatient status 4. Diabetes - moderate sliding scale - resume home meds Disposition/LOS: observation, encourage PO intake, hypoglycemia protocol. poss DC tomorrow FMR H&P: Upper Level - Pertinent history 67M with known diabetes presented for episode of hypoglycemia. He was stated that he felt unwell today after he received his usual dose of insulin but did not eat this afternoon, apparently because his dinner wasn't provided at scheduled time. He was found by EMS with blood glucose of 22. He was transported to [facility], given amp of D50's. His glucose responded and last noted to be in the 90's. However, there was concern of sepsis as he was tachycardic and hypotensive, with lowest BP at 97/43 and tympanic temp of 96.9. He was started on 1L NS, vancomycin and ceftriaxone, then transfer here for further care. His hypotension had resolved. He had been discharged the previous day for leg wound, for which he completed 1 week course of vancomycin - Pertinent findings Gen: Alert, oriented, eating a sandwich, Resp: CTA, decrease air movement CV: RRR with no apparent m/g/r Ext: Appear to be well healing wounds on both leg bilaterally - Plan Date/Time: 03/19/181930 I, [Dean Hutchison], have evaluated this patient and agree with findings/plan as outlined by equine intern resident. Pertinent changes/additions are listed here. 1. Hypoglycemia resolved - Continue with accucheck, SSI, CC diet 2. Hypotension resolved - At this time, sepsis appear to be unlikely diagnosis. May consider a procalcitonin, but at this time, dc abx. Symptom may be better explained by hypoglyemic episode. - Consider adjustment of insulin dosage and for furhter tirtation at [place] 2. CKD - At baseline. WIll monitor with AM lab. 3. LE leg wound - Appear to be healing well at this time. Attending Addendum - Attending Addendum Date/Time: 03/19/182140 I personally evaluated the patient and discussed the management with Dr. Lewis. I agree with the History, Examination, Assessment and Plan documented above with any addition or exceptions noted below. The patient was transferred from [place] for hypoglycemia and hypotension. The patient states that he didn't get lunch at the right time and therefore his blood sugar dropped. He was given fluids and his blood pressure improved. He was give D50 and blood sugar improved. Will monitor blood sugar overnight as well as blood pressure. May need adjustment to insulin regimen.
[2018-03-19] MEDS ORDERED: Acetaminophen 325 MG TAB PO PRN (20:27)
[2018-03-19] MEDS ORDERED: Dextrose 5% in Water 1,000 ML IV PRN (20:27)
[2018-03-19] MEDS ORDERED: Dextrose 50% Abboject 50 ML SYRINGE SLOW IVP PRN (20:27)
[2018-03-19] MEDS ORDERED: HumaLOG 300 UNITS/3 ML VIAL SC PRN ×2 (20:27)
[2018-03-19 20:37] VITALS: BMI 42.9
[2018-03-20] MEDS ORDERED: Bisacodyl 5 MG TAB PO PRN (03:49)
[2018-03-20 04:37] LABS: #Eosinphils 0.3 thou/uL (0.0-0.7); #Lymphocytes 1.4 thou/uL (1.20-3.40); #Monocytes 0.6 thou/uL (0.11-0.59); #Neutrophils 3.4 thou/uL (1.40-6.50); %Basophils 0.7 % (0.0-1.0); %Eosinophils 5.8 % (0.0-10.0); %Lymphocytes 24.5 % (21.0-51.0); %Monocytes 9.7 % (0.0-10.0); %Neutrophils 59.2 % (42.0-75.0); Hemoglobin 8.2 g/dL (14.0-18.0); Mean Corpuscular HGB CONC 30.1 g/dL (32.0-36.0); Mean Corpuscular Hemoglobin 25.1 pg (27.0-31.0); Mean Corpuscular Volume 83.6 fL (78.0-98.0); Mean Platelet Volume 8.2 fL (7.4-10.4); Platelet Count 374 thou/uL (130-400); RBC Distribution Width 15.2 % (11.5-14.5); Red Blood Cell (RBC) Count 3.28 mill/uL (4.70-6.10); White Blood Cell (WBC) Count 5.7 thou/uL (4.8-10.8)
[2018-03-20 04:56] LABS: ALT (SGPT) 27 U/L (8-55); AST (SGOT) 40 U/L (5-34); Albumin 3.5 g/dL (3.4-4.8); Alkaline Phosphatase 165 U/L (40-150); Anion Gap 15 mmol/L (10-20); BUN (Urea Nitrogen) 97 mg/dL (8.4-25.7); Bilirubin, Total 0.4 mg/dL (0.2-1.2); Calc. Creatinine Clearance 29 mL/min (70-130); Calcium 8.6 mg/dL (7.8-10.44); Carbon Dioxide 19 mmol/L (23-31); Chloride 111 mmol/L (98-107); Estimated GFR-MDRD 16; Globulin 3.3 g/dL (2.4-3.5); Glucose 145 mg/dL (80-115); Potassium 5.3 mmol/L (3.5-5.1); Protein, Total 6.8 g/dL (5.8-8.1); Sodium 140 mmol/L (136-145)
--- NOTE | 2018-03-20 05:44 | PDOC.FM ---
- Subjective Subjective: Pt. has no complaints at this time. He denies dizziness, sob, cp, or n/v. - Objective MAR Reviewed: Yes Vital Signs & Weight: Vital Signs (12 hours) Temp Pulse Resp BP BP Pulse Ox 03/20/18 04:22 97.4 F L 56 L 22 H 119/56 L 97 03/20/18 00:15 97.9 F 55 L 28 H 104/54 L 100 03/19/18 22:59 97.4 F L 53 L 29 H 99/70 99 03/19/18 20:22 98.2 F 52 L 28 H 114/57 L 98 Weight Weight 128.055 kg Result Diagrams: 03/20/18 03:55 03/20/18 03:55 <Godfrey Calderon - Last Filed: 03/20/18 09:03> - Objective Vital Signs & Weight: Vital Signs (12 hours) Temp Pulse Resp BP BP BP Pulse Ox 03/20/18 11:50 57 L 20 131/61 95 03/20/18 10:46 55 L 113/54 L 03/20/18 07:06 97.7 F 55 L 22 H 113/54 L 95 03/20/18 04:22 97.4 F L 56 L 22 H 119/56 L 97 Weight Weight 128.055 kg I&O: 03/19/18 03/20/18 03/21/18 06:59 06:59 06:59 Intake Total 600 Balance 600 Result Diagrams: 03/20/18 03:55 03/20/18 03:55 <Rimma Gonzales - Last Filed: 03/20/18 16:20> Phys Exam - Physical Examination Constitutional: NAD HEENT: moist MMs Respiratory: no wheezing, clear to auscultation bilateral Cardiovascular: RRR, no significant murmur Gastrointestinal: positive bowel sounds Pitting edema to mid abdomen Musculoskeletal: pulses present, edema present 2+ edema in legs Neurological: moves all 4 limbs Psychiatric: A&O x 3 <Godfrey Calderon - Last Filed: 03/20/18 09:03> Dx/Plan (1) Hypotension Status: Acute (2) Hypoglycemia Code(s): E16.2 - HYPOGLYCEMIA, UNSPECIFIED Status: Acute (3) Anemia in chronic kidney disease (CKD) Code(s): N18.9 - CHRONIC KIDNEY DISEASE, UNSPECIFIED; D63.1 - ANEMIA IN CHRONIC KIDNEY DISEASE Status: Chronic Qualifiers: Chronic kidney disease stage: stage 4 (severe) Qualified Code(s): N18.4 - Chronic kidney disease, stage 4 (severe); D63.1 - Anemia in chronic kidney disease (4) CKD (chronic kidney disease) Code(s): N18.9 - CHRONIC KIDNEY DISEASE, UNSPECIFIED Status: Chronic Qualifiers: Chronic kidney disease stage: stage 4 (severe) Qualified Code(s): N18.4 - Chronic kidney disease, stage 4 (severe) (5) Hyperkalemia Code(s): E87.5 - HYPERKALEMIA Status: Acute (6) Diabetes Code(s): E11.9 - TYPE 2 DIABETES MELLITUS WITHOUT COMPLICATIONS Status: Chronic Qualifiers: Diabetes mellitus type: type 2 Diabetes mellitus complication status: with kidney complications Diabetes mellitus complication detail: with chronic kidney disease Chronic kidney disease stage: stage 4 (severe) - Plan Plan: This is a 67 yo AA male with a PMH HTN, DMII, CKD IV, anemia of chronic disease Hypoglycemia -Resolved. Pt's blood glucose is fragile and it would be safer to let it run high. I would suggest providing sliding scale insulin as his form of insulin going forward. Hypotension -Resolved. BP this AM is 119/56. We will monitor pt. on his current BP meds today CKD with anemia -Hgb is 8.2. This is around his baseline, ~9. We will also monitor his fluid status. Pt. is fluid overloaded and will need gentle diuresis. Chronic wound of LE -Pt. is receiving wound care in [facility]. Wound care has been consulted for his time here. DM -Moderate sliding scale, ACHS accuchecks. Code: Full Prophylaxis: None Family: None at bedside Disposition: SNF today <Godfrey Calderon - Last Filed: 03/20/18 09:03> (1) Hypoglycemia Code(s): E16.2 - HYPOGLYCEMIA, UNSPECIFIED Status: Acute (2) Anemia in chronic kidney disease (CKD) Code(s): N18.9 - CHRONIC KIDNEY DISEASE, UNSPECIFIED; D63.1 - ANEMIA IN CHRONIC KIDNEY DISEASE Status: Chronic Qualifiers: Chronic kidney disease stage: stage 4 (severe) Qualified Code(s): N18.4 - Chronic kidney disease, stage 4 (severe); D63.1 - Anemia in chronic kidney disease (3) Chronic wound of extremity Code(s): [id number] - Status: Chronic (4) Diabetes Code(s): E11.9 - TYPE 2 DIABETES MELLITUS WITHOUT COMPLICATIONS Status: Chronic Qualifiers: Diabetes mellitus type: type 2 Diabetes mellitus complication status: with kidney complications Diabetes mellitus complication detail: with chronic kidney disease Chronic kidney disease stage: stage 4 (severe) <Rimma Gonzales - Last Filed: 03/20/18 16:20> Attending Addendum - Attending Addendum Date/Time: 03/20/18618 I personally evaluated the patient and discussed the management with Dr. Calderon. I agree with the History, Examination, Assessment and Plan documented above with any addition or exceptions noted below. Blood sugar is stable. Will change pt to long acting insulin and drop dose. PCP at SNF can titrate insulin dose. Stopping lisinopril. Likely can go back to snf today. <Rimma Gonzales - Last Filed: 03/20/18 16:20>
[2018-03-20] MEDS ORDERED: Furosemide 40 MG TAB PO SCH (07:30)
[2018-03-20 07:50] VITALS: TEMP 97.7
[2018-03-20] MEDS ORDERED: Carvedilol 25 MG TAB PO SCH (08:00)
[2018-03-20] MEDS ORDERED: Ferrous Sulfate 325 MG TAB PO SCH (08:00)
[2018-03-20] MEDS ORDERED: Ascorbic Acid 500 mg Chewable Tablet PO SCH (09:00)
[2018-03-20] MEDS ORDERED: Amlodipine 10 MG TAB PO SCH (09:00)
[2018-03-20] MEDS ORDERED: Fluticasone Propionate Nasal Spray 16 gm Bottle NASAL SCH (09:00)
[2018-03-20] MEDS ORDERED: Insulin NPH/Reg Insulin Hm 300 UNITS/3 ML VIAL SC SCH ×3 (09:00→21:00)
[2018-03-20] MEDS ORDERED: Hydrochlorothiazide 25 MG TAB PO SCH (09:00)
[2018-03-20] MEDS ORDERED: Docusate 100 MG CAP PO SCH (09:00)
[2018-03-20] MEDS ORDERED: Atenolol 50 MG TAB PO SCH (09:00)
[2018-03-20] MEDS ORDERED: Zinc Sulfate 220 MG CAP PO SCH (09:00)
[2018-03-20] MEDS ORDERED: Enoxaparin Sodium 30 MG/0.3 ML SYRINGE SC SCH (09:00)
[2018-03-20] MEDS ORDERED: Losartan 25 MG TAB PO SCH (09:00)
[2018-03-20] MEDS: prednisoLONE 1% Ophth Susp 5 ml Bottle EA EYE SCH ×2 (10:49→12:04)
[2018-03-20] MEDS: Ketorolac Tromethamine 0.5% Ophth Soln 3 ml Bottle EA EYE SCH ×2 (10:55→12:03)
[2018-03-20] MEDS ORDERED: Insulin Glargine 30 UNITS in Pre-Filled Syringe 1 EACH SC SCH (11:00)
[2018-03-20 12:39] VITALS: BP 131/61
[2018-03-20] MEDS ORDERED: Atorvastatin Calcium 20 MG TAB PO SCH (21:00)
--- NOTE | 2018-03-21 01:21 | DIS-2 ---
DATE OF ADMISSION: 03/19/2018 DATE OF DISCHARGE: 03/20/2018 RESIDENT: Godfrey Calderon D.O. ADMITTING ATTENDING: Rimma Gonzales M.D. DISCHARGE ATTENDING: Rimma Gonzales M.D. CONSULTS: None. PROCEDURES: None. PRIMARY DIAGNOSES: Hypotension, hypoglycemia. SECONDARY DIAGNOSES: Chronic kidney disease, anemia of chronic illnesses, chronic wounds, and type 2 diabetes. DISCHARGE MEDICATIONS: 1. Prednisone eyedrops 1 drop OP q.i.d. 2. Simvastatin 40 mg p.o. at bedtime. 3. Ketorolac tromethamine eyedrops 1 drop each eye q.i.d. 4. Carvedilol 12.5 mg b.i.d. 5. Colace 100 mg p.o. b.i.d. 6. Flonase 1 spray per nostril daily. 7. Furosemide 20 mg p.o. daily. 8. Ferrous sulfate 325 mg p.o. daily. 9. Vitamin C 500 mg p.o. b.i.d. 10. Zinc sulfate 220 mg p.o. daily. 11. Aspirin 81 mg p.o. daily. 12. Dulcolax 5 mg p.o. p.r.n. 13. Tylenol 650 mg p.o. q.4 hours p.r.n. pain. 14. Lantus 30 units subcu q.a.m. 15. Hydrochlorothiazide 25 mg p.o. daily. 16. Losartan 100 mg p.o. daily. DISCONTINUED MEDICATIONS: 1. Amlodipine 10 mg. 2. Novolog 70/30, 60 mg q.a.m. 3. Novolog 20 at bedtime. 4. Furosemide 40 mg p.o. daily. BRIEF HISTORY OF PRESENT ILLNESS AND HOSPITAL COURSE: This is a 67-year-old male recently discharged from the hospital who presented after feeling poorly with a low blood glucose of 20. He reports he had taken his medication as instructed, but had not eaten at the correct time due to the staff not bring in food. It is resulted in hypoglycemia as well as a hypotensive episode and which he passed out. The patient was brought to the ER where hypotension and hypoglycemia was resolved with a liter of fluid and D50. During the patient's hospital stay, he had no hypoglycemic or hypotensive episodes. We decreased his blood pressure medications and change pt. to long acting insulin so that he has less risk of hypotension or hypoglycemia. Pt. can titrated in the outpatient setting. DISPOSITION: Stable. DISCHARGE INSTRUCTIONS: 1. Location: [facility] in [place]. 2. Diet: Heart healthy, cardiac, diabetic. 3. Activity: As tolerated. 4. Followup: Follow up with primary care physician in 1-2 weeks. [place]
== END 2018-03-20 13:05 ==
LOC: ERS 17:18 → 2SW 18:31
PROVIDERS: ADMIT Family Medicine; ATTEND Family Medicine
DX: E11.649 Type 2 diabetes mellitus with hypoglycemia without coma (principal); I12.9 Hypertensive chronic kidney disease with stage 1 through stage 4 chronic kidney disease, or unspecified chronic kidney disease; E11.22 Type 2 diabetes mellitus with diabetic chronic kidney disease; N18.4 Chronic kidney disease, stage 4 (severe); I50.9 Heart failure, unspecified; D63.1 Anemia in chronic kidney disease; S81.809A Unspecified open wound, unspecified lower leg, initial encounter; Z79.4 Long term (current) use of insulin; Z79.82 Long term (current) use of aspirin; Z79.899 Other long term (current) drug therapy
CPT/HCPCS: 80053; 82962 ×2; 85025; 96365; 96372; 97139 ×2; 99285; G0378 ×2; 36415; 36416; J1650